=== PATIENT | female | born 1990 | race Caucasian/White ===

== ENCOUNTER 2018-08-08 07:11 | Inpatient (IN) | payer OTHER ==
--- NOTE | 2018-08-08 08:02 | ED ---
General Adult HPI - General Chief complaint: Psychiatric Symptoms Stated complaint: Mental Health Time Seen by Provider: 08/08/18 07:20 Source: patient, EMS, RN notes reviewed Mode of arrival: EMS Limitations: altered mental status - History of Present Illness Initial comments: This is a 28-year-old female who presents to the emergency department with her . Patient was brought in because police were called to the scene because the patient was trying to jump out of a second-story window according to the prior to that she was trying to drink some sort of chemical spray. states this is happened in the past and she had to be admitted to a psychiatric [facility]. Patient is supposed be taking some medications but no longer takes any. states over the last year she's been doing pretty good but she occasionally has episodes where she's not making sense and is worried about her ex-boyfriend coming and getting her. Patient again was making those statements this week but the symptoms have gotten progressively worse and her behavior has become more and more bizarre according to the . states that she is in fear that someone is going to hurt her and it's always related to her ex-boyfriend. states quite often this week she was saying things that make no sense at all to him. He does not believe she is doing any drugs besides marijuana. Patient herself indicates that nothing hurts her and she has no physical complaints and she does agree she needs to be here. Patient also states that she has been having thoughts that someone is trying to harm her. - Related Data Home Medications Medication Instructions Recorded Confirmed Multivitamins, Thera [Multivitamin 1 tab PO DAILY 08/08/18 08/08/18 (formulary)] Xanax (Unknown Dose) 0.25 tab PO QID PRN 08/08/18 08/08/18 Allergies Allergy/AdvReac Type Severity Reaction Status Date / Time No Known Allergies Allergy Verified 08/08/18 08:15 Review of Systems ROS Statement: Those systems with pertinent positive or pertinent negative responses have been documented in the HPI. ROS Other: All systems not noted in ROS Statement are negative. Past Medical History Past Medical History: Unable to Obtain History of Any Multi-Drug Resistant Organisms: None Reported Past Surgical History: Unable to Obtain Past Psychological History: Unable to Obtain Smoking Status: Unknown if ever smoked Past Alcohol Use History: Unable to Obtain Past Drug Use History: None Reported General Exam - General Exam Comments Initial Comments: GENERAL: Patient is well-developed and well-nourished. Patient is nontoxic and well- hydrated and is in no acute distress. ENT: Neck is soft and supple. No significant lymphadenopathy is noted. Oropharynx is clear. Moist mucous membranes. Neck has full range of motion without eliciting any pain. EYES: The sclera were anicteric and conjunctiva were pink and moist. Extraocular movements were intact and pupils were equal round and reactive to light. Eyelids were unremarkable. PULMONARY: Unlabored respirations. Good breath sounds bilaterally. No audible rales rhonchi or wheezing was noted. CARDIOVASCULAR: There is a regular rate and rhythm without any murmurs gallops or rubs. ABDOMEN: Soft and nontender with normal bowel sounds. SKIN: Skin is clear with no lesions or rashes and otherwise unremarkable. NEUROLOGIC: Patient is alert and oriented x3. Cranial nerves II through XII are grossly intact. Motor and sensory are also intact. Speech is very shallow quadrant MUSCULOSKELETAL: Normal extremities with adequate strength and full range of motion. LYMPHATICS: No significant lymphadenopathy is noted PSYCHIATRIC: Patient is acting very bizarre in the room and twitching yet when you tell her to stop she does stop and occasionally she can also is a little and again when you talk. She stops. Patient does states she needs to be seen but she doesn't play specifically why. Patient does agree that she is fearful that her ex- boyfriend is coming to get her. Limitations: altered mental status Course Vital Signs 08/08/18 08/08/18 08/08/18 07:17 07:28 09:19 Temperature 98.7 F Pulse Rate 94 73 64 Respiratory 32 H 18 16 Rate Blood Pressure 136/100 121/95 115/77 O2 Sat by Pulse 100 98 94 L Oximetry Medical Decision Making - Medical Decision Making EPS came down to evaluate the patient and determined the patient needed to be admitted. - Lab Data Result diagrams: 08/08/18 08:05 08/08/18 08:05 Lab Results 08/08/18 08/08/18 08/08/18 Range/Units 08:05 08:05 08:25 WBC 6.3 (3.8-10.6) k/uL RBC 4.81 (3.80-5.40) m/uL Hgb 13.6 (11.4-16.0) gm/dL Hct 41.1 (34.0-46.0) % MCV 85.5 (80.0-100.0) fL MCH 28.2 (25.0-35.0) pg MCHC 33.0 (31.0-37.0) g/dL RDW 15.7 H (11.5-15.5) % Plt Count 246 (150-450) k/uL Neutrophils % 76 % Lymphocytes % 17 % Monocytes % 5 % Eosinophils % 0 % Basophils % 0 % Neutrophils # 4.7 (1.3-7.7) k/uL Lymphocytes # 1.1 (1.0-4.8) k/uL Monocytes # 0.3 (0-1.0) k/uL Eosinophils # 0.0 (0-0.7) k/uL Basophils # 0.0 (0-0.2) k/uL Sodium 140 (137-145) mmol/L Potassium 4.4 (3.5-5.1) mmol/L Chloride 108 H (98-107) mmol/L Carbon Dioxide 23 (22-30) mmol/L Anion Gap 9 mmol/L BUN 9 (7-17) mg/dL Creatinine 0.76 (0.52-1.04) mg/dL Est GFR (CKD-EPI)AfAm >90 (>60 ml/min/1.73 sqM) Est GFR (CKD-EPI)NonAf >90 (>60 ml/min/1.73 sqM) Glucose 91 (74-99) mg/dL Calcium 9.7 (8.4-10.2) mg/dL Total Bilirubin 0.3 (0.2-1.3) mg/dL AST 32 (14-36) U/L ALT 38 (9-52) U/L Alkaline Phosphatase 69 (38-126) U/L Total Protein 8.3 H (6.3-8.2) g/dL Albumin 4.3 (3.5-5.0) g/dL Urine Opiates Screen Not Detected (NotDetected) Ur Oxycodone Screen Not Detected (NotDetected) Urine Methadone Screen Not Detected (NotDetected) Ur Propoxyphene Screen Not Detected (NotDetected) Ur Barbiturates Screen Not Detected (NotDetected) U Tricyclic Antidepress Not Detected (NotDetected) Ur Phencyclidine Scrn Not Detected (NotDetected) Ur Amphetamines Screen Not Detected (NotDetected) U Methamphetamines Scrn Not Detected (NotDetected) U Benzodiazepines Scrn Detected H (NotDetected) Urine Cocaine Screen Not Detected (NotDetected) U Marijuana (THC) Screen Detected H (NotDetected) Serum Alcohol <10 mg/dL Disposition Clinical Impression: Acute psychosis Disposition: ADMITTED IP TO THIS HOSP Referrals: Fouzia Joseph DO [Primary Care Provider] - 1-2 days Time of Disposition: 11:49
--- NOTE | 2018-08-08 08:16 | CT ---
EXAMINATION TYPE: CT brain wo con DATE OF EXAM: 08/08/2018 COMPARISON: None INDICATION: Mental Health, insomnia x3 days DLP: 2194.4 mGycm, Automated exposure control for dose reduction was used. CONTRAST: None CT of the brain is performed utilizing 3 mm thick sections through the posterior fossa and 3 mm thick sections through the remaining calvarium. Study is performed within 24 hours of arrival to the hosp ital. No abnormal hyperdensity is present to suggest an acute intracranial hemorrhage. No mass lesion is evident. No acute infarcts are evident. Ventricles and sulci are appropriate for the patient age. Paranasal sinuses and mastoid air cells within the [id number] are clear. IMPRESSIONS: 1. No acute intracranial process.
[2018-08-08 08:27] LABS: Basophils % (A) 0 %; Eosinophils % (A) 0 %; HCT 41.1 % (34.0-46.0); HGB 13.6 gm/dL (11.4-16.0); Lymphocytes # (A) 1.1 k/uL (1.0-4.8); Lymphocytes % (A) 17 %; MCH 28.2 pg (25.0-35.0); MCV 85.5 fL (80.0-100.0); Mean Platelet Volume 7.9; Monocytes # (A) 0.3 k/uL (0-1.0); Monocytes % (A) 5 %; Neutrophils # (A) 4.7 k/uL (1.3-7.7); Neutrophils % (A) 76 %; Platelet Count 246 k/uL (150-450); RBC 4.81 m/uL (3.80-5.40); RDW 15.7 % (11.5-15.5); WBC 6.3 k/uL (3.8-10.6)
[2018-08-08 08:38] LABS: ALT 38 U/L (9-52); AST 32 U/L (14-36); Albumin 4.3 g/dL (3.5-5.0); Alcohol <10 mg/dL; Alkaline Phosphatase 69 U/L (38-126); Anion Gap 9 mmol/L; Blood Urea Nitrogen 9 mg/dL (7-17); Calcium 9.7 mg/dL (8.4-10.2); Carbon Dioxide 23 mmol/L (22-30); Chloride 108 mmol/L (98-107); Glucose 91 mg/dL (74-99); Potassium 4.4 mmol/L (3.5-5.1); Sodium 140 mmol/L (137-145); Total Bilirubin 0.3 mg/dL (0.2-1.3); Total Protein 8.3 g/dL (6.3-8.2)
[2018-08-08 09:00] LABS: Amphetamine Screen,Urine Not Detected (NotDetected); Barbiturate Screen,Urine Not Detected (NotDetected); Benzodiazepines Screen,Urine Detected (NotDetected); Cocaine Screen,Urine Not Detected (NotDetected); Methadone Screen, Urine Not Detected (NotDetected); Opiate Screen,Urine Not Detected (NotDetected); Oxycodone Screen, Urine Not Detected (NotDetected); Phencyclidine Screen,Urine Not Detected (NotDetected); Tricyclic Antidepressant,Urine Not Detected (NotDetected); Urn Cannabinoid Scrn Detected (NotDetected)
[2018-08-08] MEDS ORDERED: ACETAMINOPHEN TAB 325 MG TAB PO PRN (13:50)
[2018-08-08] MEDS ORDERED: MAGNESIUM HYDROXIDE 2,400 MG/10 ML CUP PO PRN (13:50)
[2018-08-08] MEDS ORDERED: MAG HYDROX/AL HYDROX/SIMETH 30 ML CUP PO PRN (13:50)
[2018-08-08] MEDS ORDERED: INFLUENZA VACCINE (6 MOS+) 60 MCG/0.5 ML SYRINGE IM ONE (14:26)
[2018-08-08] MEDS ORDERED: PNEUMOCOCCAL VACC-PNEUMOVAX 23 25 MCG/0.5 ML VIAL IM ONE (14:26)
[2018-08-08] MEDS: LORazepam 1 MG TAB PO PRN ×2 (14:55→23:01)
--- NOTE | 2018-08-08 15:06 | P.CONS ---
History of Present Illness - Reason for Consult Consult date: 08/08/18 Medical Management Requesting physician: Gino Carrera - Chief Complaint psychosis - History of Present Illness This is a 28-year-old female, patient of [facility]. She has a known past medical history of anxiety and depression. She's had previous psychiatric hospitalizations. Patient brought into the hospital by her regarding bizarre behavior. Per ER report patient was trying to jump out of a second story window according to the . She is also trying to drink some chemical spray. And she is also concerned that her ex boyfriend was coming to get her. Patient does smoke marijuana regularly. She denies any other drug history. Denies any alcohol use. Denies any nicotine use. Patient is very anxious. Complains of some discomfort on the left abdomen. And during exam appears to have difficulty swallowing. However she is able to drink and eat without problems. Denies any coughing or choking. Denies any nausea or vomiting. Reports regular bowel movements. Denies any burning with urination. Patient denies any chest pain or shortness of breath. Even during the exam patient reports she feels her symptoms are likely related to her anxiety. Patient denies any injury to her left side. Denies any falling. Drug screen positive for benzodiazepine and marijuana. Alcohol level less than 10 Review of Systems Please refer to HPI otherwise unremarkable Past Medical History Past Medical History: Unable to Obtain History of Any Multi-Drug Resistant Organisms: None Reported Past Surgical History: Unable to Obtain Smoking Status: Never smoker Medications and Allergies Home Medications Medication Instructions Recorded Confirmed Type No Known Home Medications 08/08/18 08/08/18 History Allergies Allergy/AdvReac Type Severity Reaction Status Date / Time No Known Allergies Allergy Verified 08/08/18 08:15 Physical Exam Vitals: Vital Signs Temp Pulse Pulse Resp BP BP Pulse Ox 08/08/18 12:57 97.7 F 72 19 123/82 08/08/18 12:48 75 16 110/78 97 08/08/18 09:19 64 16 115/77 94 L 08/08/18 07:28 73 18 121/95 98 08/08/18 07:17 98.7 F 94 32 H 136/100 100 Intake and Output 08/07/18 08/08/18 08/08/18 22:59 06:59 14:59 Other: Weight 65.884 kg Head normocephalic Neck supple Lungs clear to auscultation bilaterally no wheezing or crackles Heart regular rate and rhythm S1-S2, no rub or gallop Abdomen is soft nontender nondistended positive bowel sounds no hepatosplenomegaly. No bruising scars or rashes noted along the left abdomen Extremities no edema Neuro alert and orientated to 3 Psychiatric patient is very anxious during exam. She is fidgety. Looks like she is having difficulty swallowing all talking. And holds her left side. Results CBC & Chem 7: 08/08/18 08:05 08/08/18 08:05 Labs: Abnormal Lab Results - Last 24 Hours (Table) 08/08/18 08/08/18 08/08/18 Range/Units 08:05 08:05 08:25 RDW 15.7 H (11.5-15.5) % Chloride 108 H (98-107) mmol/L Total Protein 8.3 H (6.3-8.2) g/dL U Benzodiazepines Scrn Detected H (NotDetected) U Marijuana (THC) Screen Detected H (NotDetected) Assessment and Plan Assessment: 1. Severe Anxiety and psychosis: Patient has been admitted to the psychiatric unit. Thyroid study pending. Drug screen positive for benzodiazepine and marijuana. Continue with psychiatric management. 2. History of anxiety and depression had been on Lexapro in the past 3. Left-sided abdominal discomfort: Possibly related to patient's anxiety. Check urinalysis. If symptoms continue after psychiatric medication started we will order further imaging of the abdomen. Thank you for this consultation. We will continue to follow along with you. Time with Patient: Greater than 30 (Greater than 50% of the total time spent in counseling and coordination of care.I performed an examination of the patient and discussed their management with the physician Learning Program Manager. I have reviewed the Physician Learning Program Manager's notes and agree with the documented findings and plan of care)
[2018-08-09] MEDS: ARIPiprazole 5 MG TAB PO SCH (10:21)
[2018-08-09 11:09] LABS: Appearance,Urine Cloudy (Clear); Bacteria,Urine Occasional /hpf; Bilirubin,Urine Negative (Negative); Blood,Urine Negative (Negative); Color,Urine Yellow; Glucose,Urine (UA) Negative (Negative); Ketones,Urine Trace (Negative); Leukocyte Esterase,Urine Small (Negative); Mucus,Urine Many /hpf; Nitrite,Urine Negative (Negative); PH, Urine 6.5 (5.0-8.0); Protein,Urine 1+ (Negative); RBC,Urine 7 /hpf (0-5); Specific Gravity,Urine 1.029 (1.001-1.035); Squamous Epithelial Cell,Urine 57 /hpf (0-4); WBC,Urine 4 /hpf (0-5)
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
[2018-08-10] MEDS: LORazepam 1 MG TAB PO PRN (00:58)
[2018-08-10] MEDS: ARIPiprazole 5 MG TAB PO SCH (08:45)
[2018-08-10] MEDS ORDERED: ARIPiprazole 5 MG TAB PO ONE (09:36)
[2018-08-10] MEDS ORDERED: traZODone HCL 50 MG TAB PO PRN (09:41)
--- NOTE | 2018-08-10 09:41 | P.PN ---
Progress Note - Text Interval history: The patient is found in her room she follows me to an interview room. She states that she is still not doing well. She has difficulty providing direct answers to questions asked. She provides a long narrative when asked a question but she tends to jump from topic to topic. She continues to describe paranoid thoughts. As an example she states that there was an odd smell in her home prior to coming here, she states she could smell it everywhere and it got into her clothes. She states she is concerned it is evidence that her family was doing something to her. She states that she feels terrible for hurting her but has difficulty describing how. We discussed her thought disorganization and she has limited insight into her thought process. She has been compliant with the Abilify she is describing no side effects from it. Mental status exam: The patient is alert she seated calmly in the chair. She is dressed in her own clothing hygiene grooming are adequate. She is easily directed. Spontaneously she begins speaking and we'll continue speaking until interrupted. Thought process is tangential there are some loose associations. There appears to be paranoid thinking present. She is reporting no suicidal or homicidal thoughts. Insight and judgment are limited. She maintains a constricted affect for most of the session but almost becomes tearful twice. She demonstrates no involuntary repetitive movements. She demonstrates no verbal or physical aggressiveness. She describes no auditory or visual hallucinations. Plan: The patient will continue on the Abilify I will titrate the dose to 10 mg daily to improve organization of thought and to address paranoid thinking. We will provide trazodone 50 mg at bedtime as needed for sleep. We will monitor her for safety and encourage her participation in the milieu. Vital signs reviewed.
[2018-08-10] MEDS ORDERED: INFLUENZA VACCINE (6 MOS+) 60 MCG/0.5 ML SYRINGE IM ONE (15:03)
[2018-08-10] MEDS: BENZOCAINE/MENTHOL LOZENG 1 EACH LOZENGE MUCOUS MEM PRN (18:59)
[2018-08-11] MEDS: BENZOCAINE/MENTHOL LOZENG 1 EACH LOZENGE MUCOUS MEM PRN (02:05)
[2018-08-11] MEDS ORDERED: ARIPiprazole 10 MG TAB PO SCH (09:00)
--- NOTE | 2018-08-11 11:59 | P.HP ---
Psychiatric H&P - . H&P Date: 08/11/18 History & Physical: Allergies Allergy/AdvReac Type Severity Reaction Status Date / Time No Known Allergies Allergy Verified 08/08/18 08:15 Vital Signs Temp 97.8 F 08/11/18 06:39 Pulse 71 08/11/18 06:39 Resp 16 08/11/18 06:39 BP 102/57 08/11/18 06:39 Pulse Ox 97 08/08/18 12:48 Intake & Output 08/10/18 08/11/18 08/11/18 18:59 06:59 18:59 Weight 65.4 kg Laboratory Last Values WBC 6.3 k/uL (3.8-10.6) 08/08/18 08:05 RBC 4.81 m/uL (3.80-5.40) 08/08/18 08:05 Hgb 13.6 gm/dL (11.4-16.0) 08/08/18 08:05 Hct 41.1 % (34.0-46.0) 08/08/18 08:05 MCV 85.5 fL (80.0-100.0) 08/08/18 08:05 MCH 28.2 pg (25.0-35.0) 08/08/18 08:05 MCHC 33.0 g/dL (31.0-37.0) 08/08/18 08:05 RDW 15.7 % (11.5-15.5) H 08/08/18 08:05 Plt Count 246 k/uL (150-450) 08/08/18 08:05 Neutrophils % 76 % 08/08/18 08:05 Lymphocytes % 17 % 08/08/18 08:05 Monocytes % 5 % 08/08/18 08:05 Eosinophils % 0 % 08/08/18 08:05 Basophils % 0 % 08/08/18 08:05 Neutrophils # 4.7 k/uL (1.3-7.7) 08/08/18 08:05 Lymphocytes # 1.1 k/uL (1.0-4.8) 08/08/18 08:05 Monocytes # 0.3 k/uL (0-1.0) 08/08/18 08:05 Eosinophils # 0.0 k/uL (0-0.7) 08/08/18 08:05 Basophils # 0.0 k/uL (0-0.2) 08/08/18 08:05 Sodium 140 mmol/L (137-145) 08/08/18 08:05 Potassium 4.4 mmol/L (3.5-5.1) 08/08/18 08:05 Chloride 108 mmol/L (98-107) H 08/08/18 08:05 Carbon Dioxide 23 mmol/L (22-30) 08/08/18 08:05 Anion Gap 9 mmol/L 08/08/18 08:05 BUN 9 mg/dL (7-17) 08/08/18 08:05 Creatinine 0.76 mg/dL (0.52-1.04) 08/08/18 08:05 Est GFR (CKD-EPI)AfAm >90 (>60 ml/min/1.73 sqM) 08/08/18 08:05 Est GFR (CKD-EPI)NonAf >90 (>60 ml/min/1.73 sqM) 08/08/18 08:05 Glucose 91 mg/dL (74-99) 08/08/18 08:05 Calcium 9.7 mg/dL (8.4-10.2) 08/08/18 08:05 Total Bilirubin 0.3 mg/dL (0.2-1.3) 08/08/18 08:05 AST 32 U/L (14-36) 08/08/18 08:05 ALT 38 U/L (9-52) 08/08/18 08:05 Alkaline Phosphatase 69 U/L (38-126) 08/08/18 08:05 Total Protein 8.3 g/dL (6.3-8.2) H 08/08/18 08:05 Albumin 4.3 g/dL (3.5-5.0) 08/08/18 08:05 TSH 2.550 mIU/L (0.465-4.680) 08/08/18 08:05 Urine Color Yellow 08/09/18 10:30 Urine Appearance Cloudy (Clear) H 08/09/18 10:30 Urine pH 6.5 (5.0-8.0) 08/09/18 10:30 Ur Specific [place] 1.029 (1.001-1.035) 08/09/18 10:30 Urine Protein 1+ (Negative) H 08/09/18 10:30 Urine Glucose (UA) Negative (Negative) 08/09/18 10:30 Urine Ketones Trace (Negative) H 08/09/18 10:30 Urine Blood Negative (Negative) 08/09/18 10:30 Urine Nitrite Negative (Negative) 08/09/18 10:30 Urine Bilirubin Negative (Negative) 08/09/18 10:30 Urine Urobilinogen 3.0 mg/dL (<2.0) 08/09/18 10:30 Ur Leukocyte Esterase Small (Negative) H 08/09/18 10:30 Urine RBC 7 /hpf (0-5) H 08/09/18 10:30 Urine WBC 4 /hpf (0-5) 08/09/18 10:30 Ur Squamous Epith Cells 57 /hpf (0-4) H 08/09/18 10:30 Urine Bacteria Occasional /hpf (None) H 08/09/18 10:30 Urine Mucus Many /hpf (None) H 08/09/18 10:30 Urine HCG, Qual Not Detected (Not Detectd) 08/09/18 10:30 Urine Opiates Screen Not Detected (NotDetected) 08/08/18 08:25 Ur Oxycodone Screen Not Detected (NotDetected) 08/08/18 08:25 Urine Methadone Screen Not Detected (NotDetected) 08/08/18 08:25 Ur Propoxyphene Screen Not Detected (NotDetected) 08/08/18 08:25 Ur Barbiturates Screen Not Detected (NotDetected) 08/08/18 08:25 U Tricyclic Antidepress Not Detected (NotDetected) 08/08/18 08:25 Ur Phencyclidine Scrn Not Detected (NotDetected) 08/08/18 08:25 Ur Amphetamines Screen Not Detected (NotDetected) 08/08/18 08:25 U Methamphetamines Scrn Not Detected (NotDetected) 08/08/18 08:25 U Benzodiazepines Scrn Detected (NotDetected) H 08/08/18 08:25 Urine Cocaine Screen Not Detected (NotDetected) 08/08/18 08:25 U Marijuana (THC) Screen Detected (NotDetected) H 08/08/18 08:25 Serum Alcohol <10 mg/dL 08/08/18 08:05 Assessment and Plan Assessment: This is a 28-year-old female who presents to the emergency department with her . Patient was brought in because police were called to the scene because the patient was trying to jump out of a second-story window according to the prior to that she was trying to drink some sort of chemical spray. states this is happened in the past and she had to be admitted to a psychiatric cabral. Patient is supposed be taking some medications but no longer takes any. states over the last year she's been doing pretty good but she occasionally has episodes where she's not making sense and is worried about her ex-boyfriend coming and getting her. Patient again was making those statements this week but the symptoms have gotten progressively worse and her behavior has become more and more bizarre according to the . states that she is in fear that someone is going to hurt her and it's always related to her ex-boyfriend. states quite often this week she was saying things that make no sense at all to him. He does not believe she is doing any drugs besides marijuana. Patient herself indicates that nothing hurts her and she has no physical complaints and she does agree she needs to be here. Patient also states that she has been having thoughts that someone is trying to harm her. - Related Data Home Medications Medication Instructions Recorded Confirmed Multivitamins, Thera [Multivitamin 1 tab PO DAILY 08/08/18 08/08/18 (formulary)] Xanax (Unknown Dose) 0.25 tab PO QID PRN 08/08/18 08/08/18 Allergies Allergy/AdvReac Type Severity Reaction Status Date / Time No Known Allergies Allergy Verified 08/08/18 08:15 Past Medical History Past Medical History: Unable to Obtain History of Any Multi-Drug Resistant Organisms: None Reported Past Surgical History: Unable to Obtain Past Psychological History: Unable to Obtain Smoking Status: Unknown if ever smoked Past Alcohol Use History: Unable to Obtain Past Drug Use History: None Reported (1) Major depression with psychotic features Narrative/Plan: Interval history: The patient is found in her room she follows me to an interview room. She states that she is still not doing well. She has difficulty providing direct answers to questions asked. She provides a long narrative when asked a question but she tends to jump from topic to topic. She continues to describe paranoid thoughts. As an example she states that there was an odd smell in her home prior to coming here, she states she could smell it everywhere and it got into her clothes. She states she is concerned it is evidence that her family was doing something to her. She states that she feels terrible for hurting her but has difficulty describing how. We discussed her thought disorganization and she has limited insight into her thought process. She has been compliant with the Abilify she is describing no side effects from it. Mental status exam: The patient is alert she seated calmly in the chair. She is dressed in her own clothing hygiene grooming are adequate. She is easily directed. Spontaneously she begins speaking and we'll continue speaking until interrupted. Thought process is tangential there are some loose associations. There appears to be paranoid thinking present. She is reporting no suicidal or homicidal thoughts. Insight and judgment are limited. She maintains a constricted affect for most of the session but almost becomes tearful twice. She demonstrates no involuntary repetitive movements. She demonstrates no verbal or physical aggressiveness. She describes no auditory or visual hallucinations. Plan: The patient will continue on the Abilify I will titrate the dose to 10 mg daily to improve organization of thought and to address paranoid thinking. We will provide trazodone 50 mg at bedtime as needed for sleep. We will monitor her for safety and encourage her participation in the milieu. Vital signs reviewed. Admitting Diagnosis: [] Patient Strengths - Personal Skills: [x] Housing stability: [x] Able to vocalize needs: [x] Motivation, determination, readiness for change: [x] Setting and pursuing goals, hopes, dreams, aspirations: [x] Resources - social, interpersonal, monetary: [x] Interpersonal relationships and supports available - family, relatives, friends : [x] Patient Limitations: [medication, non-compliance Initial Plan of Care: [She was admitted on formal voluntary 15 minute checks and instructed on cabral milieu therapeutic environment expectations. She'll be evaluated by psychiatry, medicine, social work, nursing staff, and recreational therapy and integrated in the cabral milieu therapeutic environment. She will be started on Invega 3 mg by mouth daily at bedtime and Lamictal 25 mg by mouth daily at bedtime with titration of Invega to 12 mg and Lamictal to 200 mg on 25 mg dosing daily schedule to ascertain benefit risk ratio discussed with the patient and look out for any side effects from the medication. She did not like the feeling of Abilify and felt too groggy and overwhelmed that she was taken off of.] Estimated Length of Stay: [5-7 days] Initial Discharge Plan: [home, [facility], referred to therapist, partial hospital, intensive outpatient, residential placement, other] Prognosis: [good, fair, guarded] Justification for Inpatient Hospitalization - [delusions, agitation, anxiety, depression resulting in significant loss of functioning.] [Dangerous to self with need for controlled environment.] [Emotional or behavioral conditions and complications requiring 24 hour medical and nursing care.] [Need for special drug therapy, or other therapeutic program requiring continuous hospitalization.] [Failure of social or occupational functioning.] [Inability to meet basic life and health needs.] Current Visit: Yes Status: Acute Priority: High Code(s): F32.3 - MAJOR DEPRESSV DISORD, SINGLE EPSD, SEVERE W PSYCH FEATURES SNOMED Code(s): 653750060 Plan: Discontinue Abilify and changed to Invega 3 mg by mouth daily at bedtime and Lamictal 25 mg by mouth daily at bedtime. Discussed risk benefit ratio with the patient. Will be seen on a daily basis and teamed and a multi specialty group for progress and disposition. Time with Patient: Less than 30
[2018-08-11] MEDS ORDERED: ARTIFICIAL TEARS-HYPROMELLOSE DROPS 15 ML BTL BOTH EYES PRN (16:30)
[2018-08-11] MEDS ORDERED: lamoTRIgine 25 MG TAB PO SCH (21:00)
[2018-08-11] MEDS ORDERED: PALIPERIDONE 3 MG TAB.ER.24 PO SCH (21:00)
--- NOTE | 2018-08-12 14:13 | P.PN ---
Subjective Progress Note Date: 08/12/18 Principal diagnosis: bipolar affective disorder-depressed and paranoid I am terrified and I am feel very fearful. Teardul the entire interview. She rambles at times and resistant to care. Objective - Vital Signs Vital signs: Vital Signs Temp 98 F 08/12/18 06:47 Pulse 79 08/12/18 06:47 Resp 16 08/12/18 06:47 BP 107/66 08/12/18 06:47 Pulse Ox 97 08/08/18 12:48 - Labs CBC & Chem 7: 08/08/18 08:05 08/08/18 08:05 Assessment and Plan Assessment: This is a 28-year-old female who presents to the emergency department with her . Patient was brought in because police were called to the scene because the patient was trying to jump out of a second-story window according to the prior to that she was trying to drink some sort of chemical spray. states this is happened in the past and she had to be admitted to a psychiatric cabral. Patient is supposed be taking some medications but no longer takes any. states over the last year she's been doing pretty good but she occasionally has episodes where she's not making sense and is worried about her ex-boyfriend coming and getting her. Patient again was making those statements this week but the symptoms have gotten progressively worse and her behavior has become more and more bizarre according to the . states that she is in fear that someone is going to hurt her and it's always related to her ex-boyfriend. states quite often this week she was saying things that make no sense at all to him. He does not believe she is doing any drugs besides marijuana. Patient herself indicates that nothing hurts her and she has no physical complaints and she does agree she needs to be here. Patient also states that she has been having thoughts that someone is trying to harm her. - Related Data Home Medications Medication Instructions Recorded Confirmed Multivitamins, Thera [Multivitamin 1 tab PO DAILY 08/08/18 08/08/18 (formulary)] Xanax (Unknown Dose) 0.25 tab PO QID PRN 08/08/18 08/08/18 Allergies Allergy/AdvReac Type Severity Reaction Status Date / Time No Known Allergies Allergy Verified 12/07/18 08:15 Past Medical History Past Medical History: Unable to Obtain History of Any Multi-Drug Resistant Organisms: None Reported Past Surgical History: Unable to Obtain Past Psychological History: Unable to Obtain Smoking Status: Unknown if ever smoked Past Alcohol Use History: Unable to Obtain Past Drug Use History: None Reported (1) Major depression with psychotic features Narrative/Plan: Interval history: The patient is found in her room she follows me to an interview room. She states that she is still not doing well. She has difficulty providing direct answers to questions asked. She provides a long narrative when asked a question but she tends to jump from topic to topic. She continues to describe paranoid thoughts. As an example she states that there was an odd smell in her home prior to coming here, she states she could smell it everywhere and it got into her clothes. She states she is concerned it is evidence that her family was doing something to her. She states that she feels terrible for hurting her but has difficulty describing how. We discussed her thought disorganization and she has limited insight into her thought process. She has been compliant with the Abilify she is describing no side effects from it. Mental status exam: The patient is alert she seated calmly in the chair. She is dressed in her own clothing hygiene grooming are adequate. She is easily directed. Spontaneously she begins speaking and we'll continue speaking until interrupted. Thought process is tangential there are some loose associations. There appears to be paranoid thinking present. She is reporting no suicidal or homicidal thoughts. Insight and judgment are limited. She maintains a constricted affect for most of the session but almost becomes tearful twice. She demonstrates no involuntary repetitive movements. She demonstrates no verbal or physical aggressiveness. She describes no auditory or visual hallucinations. Plan: The patient will continue on the Abilify I will titrate the dose to 10 mg daily to improve organization of thought and to address paranoid thinking. We will provide trazodone 50 mg at bedtime as needed for sleep. We will monitor her for safety and encourage her participation in the milieu. Vital signs reviewed. Admitting Diagnosis: [] Patient Strengths - Personal Skills: [x] Housing stability: [x] Able to vocalize needs: [x] Motivation, determination, readiness for change: [x] Setting and pursuing goals, hopes, dreams, aspirations: [x] Resources - social, interpersonal, monetary: [x] Interpersonal relationships and supports available - family, relatives, friends : [x] Patient Limitations: [medication, non-compliance Initial Plan of Care: [She was admitted on formal voluntary 15 minute checks and instructed on cabral milieu therapeutic environment expectations. She'll be evaluated by psychiatry, medicine, social work, nursing staff, and recreational therapy and integrated in the cabral milieu therapeutic environment. Estimated Length of Stay: [6 days] Initial Discharge Plan: [home, [facility], referred to therapist, [facility], intensive outpatient, residential placement, other] Prognosis: [good, fair, guarded] Justification for Inpatient Hospitalization - [delusions, agitation, anxiety, depression resulting in significant loss of functioning.] [Dangerous to self with need for controlled environment.] [Emotional or behavioral conditions and complications requiring 24 hour medical and nursing care.] [Need for special drug therapy, or other therapeutic program requiring continuous hospitalization.] [Failure of social or occupational functioning.] [Inability to meet basic life and health needs.] Current Visit: Yes Status: Acute Priority: High Code(s): F32.3 - MAJOR DEPRESSV DISORD, SINGLE EPSD, SEVERE W PSYCH FEATURES SNOMED Code(s): 082047029 Plan: Risperdal 0.5 mg by mouth daily at bedtime and topamax 25 mg by mouth daily at bedtime. Discussed risk benefit ratio with the patient. Will be seen on a daily basis and teamed and a multi specialty group for progress and disposition. Time with Patient: Greater than 30
[2018-08-12 14:16] VITALS: BMI 24.7
[2018-08-12] MEDS: risperiDONE 0.5 MG TAB PO SCH (20:32)
[2018-08-12] MEDS ORDERED: TOPIRAMATE 25 MG TAB PO SCH (21:00)
--- NOTE | 2018-08-13 12:16 | P.PN ---
Subjective Progress Note Date: 08/13/18 Principal diagnosis: bipolar affective disorder-depressed and paranoid I am terrified and I am feel very fearful. Tearful the entire interview. She rambles at times and resistant to care. Objective - Vital Signs Vital signs: Vital Signs Temp 98.5 F 08/13/18 06:24 Pulse 87 08/13/18 06:24 Resp 12 08/13/18 06:24 BP 116/75 08/13/18 06:24 Pulse Ox 97 08/08/18 12:48 Intake & Output 08/12/18 08/13/18 08/13/18 18:59 06:59 18:59 Weight 65.4 kg - Labs CBC & Chem 7: 08/08/18 08:05 08/08/18 08:05 Assessment and Plan Assessment: This is a 28-year-old female who presents to the emergency department with her . Patient was brought in because police were called to the scene because the patient was trying to jump out of a second-story window according to the prior to that she was trying to drink some sort of chemical spray. states this is happened in the past and she had to be admitted to a psychiatric cabral. Patient is supposed be taking some medications but no longer takes any. states over the last year she's been doing pretty good but she occasionally has episodes where she's not making sense and is worried about her ex-boyfriend coming and getting her. Patient again was making those statements this week but the symptoms have gotten progressively worse and her behavior has become more and more bizarre according to the . states that she is in fear that someone is going to hurt her and it's always related to her ex-boyfriend. states quite often this week she was saying things that make no sense at all to him. He does not believe she is doing any drugs besides marijuana. Patient herself indicates that nothing hurts her and she has no physical complaints and she does agree she needs to be here. Patient also states that she has been having thoughts that someone is trying to harm her. - Related Data Home Medications Medication Instructions Recorded Confirmed Multivitamins, Thera [Multivitamin 1 tab PO DAILY 08/08/18 08/08/18 (formulary)] Xanax (Unknown Dose) 0.25 tab PO QID PRN 08/08/18 08/08/18 Allergies Allergy/AdvReac Type Severity Reaction Status Date / Time No Known Allergies Allergy Verified 08/08/18 08:15 Past Medical History Past Medical History: Unable to Obtain History of Any Multi-Drug Resistant Organisms: None Reported Past Surgical History: Unable to Obtain Past Psychological History: Unable to Obtain Smoking Status: Unknown if ever smoked Past Alcohol Use History: Unable to Obtain Past Drug Use History: None Reported (1) Major depression with psychotic features Narrative/Plan: Interval history: The patient is found in her room she follows me to an interview room. She states that she is still not doing well. She has difficulty providing direct answers to questions asked. She provides a long narrative when asked a question but she tends to jump from topic to topic. She continues to describe paranoid thoughts. As an example she states that there was an odd smell in her home prior to coming here, she states she could smell it everywhere and it got into her clothes. She states she is concerned it is evidence that her family was doing something to her. She states that she feels terrible for hurting her but has difficulty describing how. We discussed her thought disorganization and she has limited insight into her thought process. She has been compliant with the Abilify she is describing no side effects from it. Mental status exam: The patient is alert she seated calmly in the chair. She is dressed in her own clothing hygiene grooming are adequate. She is easily directed. Spontaneously she begins speaking and we'll continue speaking until interrupted. Thought process is tangential there are some loose associations. There appears to be paranoid thinking present. She is reporting no suicidal or homicidal thoughts. Insight and judgment are limited. She maintains a constricted affect for most of the session but almost becomes tearful twice. She demonstrates no involuntary repetitive movements. She demonstrates no verbal or physical aggressiveness. She describes no auditory or visual hallucinations. Admitting Diagnosis: [Major depressive disorder-severe with psychotic features] Patient Strengths - Personal Skills: [x] Housing stability: [x] Able to vocalize needs: [x] Motivation, determination, readiness for change: [x] Setting and pursuing goals, hopes, dreams, aspirations: [x] Resources - social, interpersonal, monetary: [x] Interpersonal relationships and supports available - family, relatives, friends : [x] Patient Limitations: [medication, non-compliance Initial Plan of Care: [She was admitted on formal voluntary 15 minute checks and instructed on cabral milieu therapeutic environment expectations. She'll be evaluated by psychiatry, medicine, social work, nursing staff, and recreational therapy and integrated in the cabral milieu therapeutic environment. Estimated Length of Stay: [ 5 days] Initial Discharge Plan: [home, [facility], referred to therapist, partial hospital, intensive outpatient, residential placement, other] Prognosis: [good, fair, guarded] Justification for Inpatient Hospitalization - [delusions, agitation, anxiety, depression resulting in significant loss of functioning.] [Dangerous to self with need for controlled environment.] [Emotional or behavioral conditions and complications requiring 24 hour medical and nursing care.] [Need for special drug therapy, or other therapeutic program requiring continuous hospitalization.] [Failure of social or occupational functioning.] [Inability to meet basic life and health needs.] Current Visit: Yes Status: Acute Priority: High Code(s): F32.3 - MAJOR DEPRESSV DISORD, SINGLE EPSD, SEVERE W PSYCH FEATURES SNOMED Code(s): 735483491 Plan: Risperdal 0.5 mg by mouth daily at bedtime and topamax 50 mg by mouth daily at bedtime. Discussed risk benefit ratio with the patient. Will be seen on a daily basis and teamed and a multi specialty group for progress and disposition. Time with Patient: Less than 30
[2018-08-13 19:00] LABS: Appearance,Urine Clear (Clear); Bilirubin,Urine Negative (Negative); Blood,Urine Negative (Negative); Color,Urine Yellow; Glucose,Urine (UA) Negative (Negative); Ketones,Urine 2+ (Negative); Leukocyte Esterase,Urine Negative (Negative); Mucus,Urine Moderate /hpf; Nitrite,Urine Negative (Negative); Protein,Urine 1+ (Negative); RBC,Urine 2 /hpf (0-5); Squamous Epithelial Cell,Urine 1 /hpf (0-4); WBC,Urine <1 /hpf (0-5)
[2018-08-13] MEDS: risperiDONE 0.5 MG TAB PO SCH (21:21)
[2018-08-13] MEDS: TOPIRAMATE 25 MG TAB PO SCH (21:21)
[2018-08-14] MEDS: BENZOCAINE/MENTHOL LOZENG 1 EACH LOZENGE MUCOUS MEM PRN ×2 (07:45→12:20)
--- NOTE | 2018-08-14 11:19 | P.PN ---
Subjective Progress Note Date: 08/14/18 Principal diagnosis: bipolar affective disorder-depressed and paranoid I am terrified and I am feel very fearful. Tearful the entire interview. She rambles at times and resistant to care. Today stating that the medicine trazodone made her stomach upset and will discontinue the medicine discussed with her that she needs to stay at least until Saturday which she agreed to staying in being discharge on 08/18/2018 Objective - Vital Signs Vital signs: Vital Signs Temp 97.7 F 08/14/18 06:35 Pulse 71 08/14/18 06:35 Resp 16 08/14/18 06:35 BP 126/75 08/14/18 06:35 Pulse Ox 97 08/08/18 12:48 - Labs CBC & Chem 7: 08/08/18 08:05 08/08/18 08:05 Labs: Abnormal Lab Results - Last 24 Hours (Table) 08/13/18 Range/Units 18:00 Urine Protein 1+ H (Negative) Urine Ketones 2+ H (Negative) Urine Mucus Moderate H (None) /hpf Microbiology - Last 24 Hours (Table) 08/13/18 18:00 Urine Culture - Preliminary Urine,Clean Catch Assessment and Plan Assessment: This is a 28-year-old female who presents to the emergency department with her . Patient was brought in because police were called to the scene because the patient was trying to jump out of a second-story window according to the prior to that she was trying to drink some sort of chemical spray. states this is happened in the past and she had to be admitted to a psychiatric cabral. Patient is supposed be taking some medications but no longer takes any. states over the last year she's been doing pretty good but she occasionally has episodes where she's not making sense and is worried about her ex-boyfriend coming and getting her. Patient again was making those statements this week but the symptoms have gotten progressively worse and her behavior has become more and more bizarre according to the . states that she is in fear that someone is going to hurt her and it's always related to her ex-boyfriend. states quite often this week she was saying things that make no sense at all to him. He does not believe she is doing any drugs besides marijuana. Patient herself indicates that nothing hurts her and she has no physical complaints and she does agree she needs to be here. Patient also states that she has been having thoughts that someone is trying to harm her. - Related Data Home Medications Medication Instructions Recorded Confirmed Multivitamins, Thera [Multivitamin 1 tab PO DAILY 08/08/18 08/08/18 (formulary)] Xanax (Unknown Dose) 0.25 tab PO QID PRN 08/08/18 08/08/18 Allergies Allergy/AdvReac Type Severity Reaction Status Date / Time No Known Allergies Allergy Verified 08/08/18 08:15 Past Medical History Past Medical History: Unable to Obtain History of Any Multi-Drug Resistant Organisms: None Reported Past Surgical History: Unable to Obtain Past Psychological History: Unable to Obtain Smoking Status: Unknown if ever smoked Past Alcohol Use History: Unable to Obtain Past Drug Use History: None Reported (1) Major depression with psychotic features Current Visit: Yes Status: Acute Priority: Medium Code(s): F32.3 - MAJOR DEPRESSV DISORD, SINGLE EPSD, SEVERE W PSYCH FEATURES SNOMED Code(s): 514438464 Plan: Risperdal 0.5 mg by mouth daily at bedtime and topamax 50 mg by mouth daily at bedtime. Discussed risk benefit ratio with the patient. Will be seen on a daily basis and teamed and a multi specialty group for progress and disposition. Discontinued her trazodone since that makes her sleep be and her stomach upset. Time with Patient: Less than 30
[2018-08-15] MEDS: BENZOCAINE/MENTHOL LOZENG 1 EACH LOZENGE MUCOUS MEM PRN (08:32)
--- NOTE | 2018-08-15 10:05 | P.PN ---
Subjective Progress Note Date: 08/15/18 Principal diagnosis: bipolar affective disorder-depressed and paranoid I am terrified and I am feel very fearful. Tearful the entire interview. She rambles at times and resistant to care. Today stating that the medicine trazodone made her stomach upset and will discontinue the medicine discussed with her that she needs to stay at least until Saturday which she agreed to staying in being discharge on 08/18/2018 Objective - Vital Signs Vital signs: Vital Signs Temp 98.2 F 08/15/18 06:39 Pulse 111 H 08/15/18 06:39 Resp 16 08/15/18 06:39 BP 116/65 08/15/18 06:39 Pulse Ox 97 08/08/18 12:48 - Labs CBC & Chem 7: 08/08/18 08:05 08/08/18 08:05 Labs: Microbiology - Last 24 Hours (Table) 08/13/18 18:00 Urine Culture - Final Urine,Clean Catch Assessment and Plan Assessment: This is a 28-year-old female who presents to the emergency department with her . Patient was brought in because police were called to the scene because the patient was trying to jump out of a second-story window according to the prior to that she was trying to drink some sort of chemical spray. states this is happened in the past and she had to be admitted to a psychiatric cabral. Patient is supposed be taking some medications but no longer takes any. states over the last year she's been doing pretty good but she occasionally has episodes where she's not making sense and is worried about her ex-boyfriend coming and getting her. Patient again was making those statements this week but the symptoms have gotten progressively worse and her behavior has become more and more bizarre according to the . states that she is in fear that someone is going to hurt her and it's always related to her ex-boyfriend. states quite often this week she was saying things that make no sense at all to him. He does not believe she is doing any drugs besides marijuana. Patient herself indicates that nothing hurts her and she has no physical complaints and she does agree she needs to be here. Patient also states that she has been having thoughts that someone is trying to harm her. - Related Data Home Medications Medication Instructions Recorded Confirmed Multivitamins, Thera [Multivitamin 1 tab PO DAILY 08/08/18 08/08/18 (formulary)] Xanax (Unknown Dose) 0.25 tab PO QID PRN 08/08/18 08/08/18 Allergies Allergy/AdvReac Type Severity Reaction Status Date / Time No Known Allergies Allergy Verified 08/08/18 08:15 Past Medical History Past Medical History: Unable to Obtain History of Any Multi-Drug Resistant Organisms: None Reported Past Surgical History: Unable to Obtain Past Psychological History: Unable to Obtain Smoking Status: Unknown if ever smoked Past Alcohol Use History: Unable to Obtain Past Drug Use History: None Reported (1) Major depression with psychotic features Narrative/Plan: Interval history: The patient is found in her room she follows me to an interview room. She states that she is still not doing well. She has difficulty providing direct answers to questions asked. She provides a long narrative when asked a question but she tends to jump from topic to topic. She continues to describe paranoid thoughts. As an example she states that there was an odd smell in her home prior to coming here, she states she could smell it everywhere and it got into her clothes. She states she is concerned it is evidence that her family was doing something to her. She states that she feels terrible for hurting her but has difficulty describing how. We discussed her thought disorganization and she has limited insight into her thought process. She has been compliant with the Abilify she is describing no side effects from it. Mental status exam: The patient is alert she seated calmly in the chair. She is dressed in her own clothing hygiene grooming are adequate. She is easily directed. Spontaneously she begins speaking and we'll continue speaking until interrupted. Thought process is tangential there are some loose associations. There appears to be paranoid thinking present. She is reporting no suicidal or homicidal thoughts. Insight and judgment are limited. She maintains a constricted affect for most of the session but almost becomes tearful twice. She demonstrates no involuntary repetitive movements. She demonstrates no verbal or physical aggressiveness. She describes no auditory or visual hallucinations. Admitting Diagnosis: [Major depressive disorder-severe with psychotic features] Patient Strengths - Personal Skills: [x] Housing stability: [x] Able to vocalize needs: [x] Motivation, determination, readiness for change: [x] Setting and pursuing goals, hopes, dreams, aspirations: [x] Resources - social, interpersonal, monetary: [x] Interpersonal relationships and supports available - family, relatives, friends : [x] Patient Limitations: [medication, non-compliance Initial Plan of Care: [She was admitted on formal voluntary 15 minute checks and instructed on cabral milieu therapeutic environment expectations. She'll be evaluated by psychiatry, medicine, social work, nursing staff, and recreational therapy and integrated in the cabral milieu therapeutic environment. Estimated Length of Stay: [ 5 days] Initial Discharge Plan: [home, [facility], referred to therapist, partial hospital, intensive outpatient, residential placement, other] Prognosis: [good, fair, guarded] Justification for Inpatient Hospitalization - [delusions, agitation, anxiety, depression resulting in significant loss of functioning.] [Dangerous to self with need for controlled environment.] [Emotional or behavioral conditions and complications requiring 24 hour medical and nursing care.] [Need for special drug therapy, or other therapeutic program requiring continuous hospitalization.] [Failure of social or occupational functioning.] [Inability to meet basic life and health needs.] Current Visit: Yes Status: Acute Priority: Low Code(s): F32.3 - MAJOR DEPRESSV DISORD, SINGLE EPSD, SEVERE W PSYCH FEATURES SNOMED Code(s): 076222457 Plan: Risperdal 1 mg by mouth daily at bedtime and topamax 50 mg by mouth daily at bedtime. Discussed risk benefit ratio with the patient. Will be seen on a daily basis and teamed and a multi specialty group for progress and disposition. Discontinued her trazodone since that makes her sleep be and her stomach upset. Time with Patient: Less than 30
[2018-08-15] MEDS: TOPIRAMATE 25 MG TAB PO SCH ×2 (19:59→20:45)
[2018-08-15] MEDS: risperiDONE 0.5 MG TAB PO SCH (20:00)
[2018-08-15] MEDS: risperiDONE 1 MG TAB PO SCH (20:44)
[2018-08-16 06:42] VITALS: RESP 14
--- NOTE | 2018-08-16 12:16 | P.PN ---
Progress Note - Text Progress Note Date: 08/16/18 Over history: Patient is seen in cross coverage today. She reports that she did sleep last night. She seems to relay that she is tolerating the psychotropic medications well. She was started on Risperdal yesterday. She verbalizes that her appetite could be better. Mental status exam: She is alert and cooperative with the interview. Her speech is fluent, not rapid or pressured. Her mood is described as better. She denies any thoughts of harm to self or others. She denies any auditory or visual hallucinations. She does not seem to verbalize any aamya delusional statements. She does not show any agitation. Plan: Patient will be maintained on current psychotropic medication regimen. Continue to monitor for any medication side effects and monitor her ongoing response to treatment. We'll continue to cover this patient to the weekend.
[2018-08-16] MEDS: risperiDONE 1 MG TAB PO SCH ×2 (21:01→21:08)
[2018-08-16] MEDS: TOPIRAMATE 25 MG TAB PO SCH ×2 (21:01→21:11)
--- NOTE | 2018-08-17 15:14 | P.PN ---
Progress Note - Text Progress Note Date: 08/17/18 Interval history: Patient is seen in cross coverage again today. She relays that she feels like her medication gives her side effects of some agitation as well as affecting her memory. We did discuss that with initially starting medications there can be some adjustment side effects which can improve. She is directed to continue to verbalize any side effects with her primary psychiatrist. She also relays that she would like to follow-up on an outpatient with someone who can help her with PTSD-like symptoms. She does feel like her mood is improved overall. Mental status exam: She is alert and cooperative with the interview. Her speech is fluent, not rapid or pressured. Her responses are somewhat vague at times. Her mood she describes his overall improved. She denies any thoughts of harm to self or others. She does not verbalize any hallucinations or amaya delusions. She does not show any agitation. She is able show some range of affect. Plan: We'll maintain psychotropic medications as current continue to monitor for any medication side effects. She will discuss further with Dr. Noriega tomorrow. Continue to monitor her ongoing response to treatment.
[2018-08-17] MEDS: risperiDONE 1 MG TAB PO SCH (20:03)
[2018-08-17] MEDS: TOPIRAMATE 25 MG TAB PO SCH ×2 (20:04→23:04)
[2018-08-18 01:22] VITALS: BP 126/85; PULSE 117; TEMP 98.1
--- NOTE | 2018-08-18 11:53 | P.DS ---
Providers Date of admission: 08/08/18 12:45 Expected date of discharge: 08/18/18 Attending physician: Chet Noriega DO Consults: 08/08/18 13:50 Consult Physician Routine Consulting Provider: Lucie Wayne Consult Reason/Comments: history and physical Do you want consulting provider notified?: Yes Primary care physician: Fouzia Joseph - Discharge Diagnosis(es) (1) Major depression with psychotic features This is a 28-year-old female who presents to the emergency department with her . Patient was brought in because police were called to the scene because the patient was trying to jump out of a second-story window according to the prior to that she was trying to drink some sort of chemical spray. states this is happened in the past and she had to be admitted to a psychiatric cabral. Patient is supposed be taking some medications but no longer takes any. states over the last year she's been doing pretty good but she occasionally has episodes where she's not making sense and is worried about her ex-boyfriend coming and getting her. Patient again was making those statements this week but the symptoms have gotten progressively worse and her behavior has become more and more bizarre according to the . states that she is in fear that someone is going to hurt her and it's always related to her ex-boyfriend. states quite often this week she was saying things that make no sense at all to him. He does not believe she is doing any drugs besides marijuana. Patient herself indicates that nothing hurts her and she has no physical complaints and she does agree she needs to be here. Patient also states that she has been having thoughts that someone is trying to harm her. - Related Data Home Medications Medication Instructions Recorded Confirmed Multivitamins, Thera [Multivitamin 1 tab PO DAILY 08/08/18 08/08/18 (formulary)] Xanax (Unknown Dose) 0.25 tab PO QID PRN 08/08/18 08/08/18 Allergies Allergy/AdvReac Type Severity Reaction Status Date / Time No Known Allergies Allergy Verified 08/08/18 08:15 Past Medical History Past Medical History: Unable to Obtain History of Any Multi-Drug Resistant Organisms: None Reported Past Surgical History: Unable to Obtain Past Psychological History: Unable to Obtain Smoking Status: Unknown if ever smoked Past Alcohol Use History: Unable to Obtain Past Drug Use History: None Reported Current Visit: Yes Status: Acute Priority: Low Hospital Course: She was admitted on formal voluntary 15 minute checks and instructed on cabral milieu therapeutic environment expectations. She'll be evaluated by psychiatry , medicine, social work, nursing staff, and recreational therapy and integrated in the cabral milieu therapeutic environment. Risperdal 1 mg by mouth daily at bedtime and topamax 50 mg by mouth daily at bedtime. Discussed risk benefit ratio with the patient. Was seen on a daily basis and teamed and a multi specialty group for progress and disposition. The patient presents alert, pleasant, and cooperative. There calmly seated without any agitated behavior. [She] reports that [her] mood is good. Affect is congruent and euthymic. [She] deny having any suicidal or homicidal ideation intent or plan. [She] denies any auditory or visual hallucinations. There is no evidence of any delusional thought content. [Her] thought process is linear and goal-directed. [Her] speech is fluent and nonpressured. [Her] memory and concentration is grossly intact for the purposes of this session. She is stable at discharge and talked with the Daniel at [phone] and discussed with him that she will need DBT and individual therapy with a psychiatrist to evaluate her medications. She is very sensitive to medication and meeting only one week for her compliant with the meds and lose her paranoia and delusions. When Talking with Her Daniel Is Suggested Using cannabinoids and discuss the benefit risk ratio of using cannabinoids and treating her. Heart: Both the research done in [place] and here in [place] and treatment for paranoia should not include cannabinoids for it will make her paranoia worse. Patient Condition at Discharge: Stable Plan - Discharge Summary Discharge Rx Participant: Yes New Discharge Prescriptions: New risperiDONE [RisperDAL] 1 mg PO HS 30 Days #30 tab Topiramate [Topamax] 50 mg PO 2100 30 Days #60 tab Discharge Medication List Topiramate [Topamax] 50 mg PO 2100 30 Days #60 tab 08/18/18 [Rx] risperiDONE [RisperDAL] 1 mg PO HS 30 Days #30 tab 08/18/18 [Rx] Follow up Appointment(s)/Referral(s): [facility] [Outside] - 08/21/18 11:30 am (please call when you get home and do phone intake. ) Fouzia Joseph, [Primary Care Provider] - 1-2 days Patient Instructions/Handouts: Depression (GEN), Anxiety (GEN), Suicide Prevention (GEN) Activity/Diet/Wound Care/Special Instructions: Activity and diet as tolerated. Avoid the use of street drugs and alcohol. Take all medications as prescribed. When you are in need of refills on your medications please contact your medical provider and/or outpatient psychiatrist to have this done. Please go to scheduled outpatient appointment for aftercare treatment. If symptoms return or become worse, call the crisis line at [phone] and/or go to the nearest emergency room for evaluation. Discharge Disposition: HOME SELF-CARE
== END 2018-08-18 12:44 | disposition home or self-care (01) | DRG 885 ==
LOC: EC 07:11 → 3MHU 12:45
PROVIDERS: ADMIT Psychiatry & Neurology Psychiatry; ATTEND Psychiatry & Neurology Psychiatry
DX: F33.3 Major depressive disorder, recurrent, severe with psychotic symptoms (principal); F12.10 Cannabis abuse, uncomplicated; F41.9 Anxiety disorder, unspecified; F60.0 Paranoid personality disorder; R13.10 Dysphagia, unspecified; T65.892A Toxic effect of other specified substances, intentional self-harm, initial encounter; T14.91XA Suicide attempt, initial encounter; Z79.899 Other long term (current) drug therapy; T43.96XA Underdosing of unspecified psychotropic drug, initial encounter; Z81.8 Family history of other mental and behavioral disorders; Z62.810 Personal history of physical and sexual abuse in childhood; Z56.0 Unemployment, unspecified; R10.9 Unspecified abdominal pain
CPT/HCPCS: 36415; 70450; 80053; 80306; 80320; 81001; 81025; 84443; 85025; 87086; 90686; 93005; 99285

== ENCOUNTER 2019-02-27 17:22 | Emergency (ER) | payer OTHER ==
[2019-02-27 19:42] LABS: Basophils % (A) 0 %; Eosinophils # (A) 0.1 k/uL (0-0.7); Eosinophils % (A) 1 %; Lymphocytes % (A) 32 %; MCH 28.2 pg (25.0-35.0); MCHC 31.8 g/dL (31.0-37.0); MCV 88.7 fL (80.0-100.0); Mean Platelet Volume 7.8; Monocytes # (A) 0.3 k/uL (0-1.0); Monocytes % (A) 4 %; Neutrophils # (A) 3.7 k/uL (1.3-7.7); Neutrophils % (A) 59 %; Platelet Count 248 k/uL (150-450); RBC 4.63 m/uL (3.80-5.40); RDW 15.5 % (11.5-15.5); WBC 6.2 k/uL (3.8-10.6)
[2019-02-27 19:53] LABS: ALT 29 U/L (9-52); AST 29 U/L (14-36); African American GFR (CKD) >90 (>60 ml/min/1.73 sqM); Albumin 4.2 g/dL (3.5-5.0); Alkaline Phosphatase 68 U/L (38-126); Anion Gap 9 mmol/L; Blood Urea Nitrogen 14 mg/dL (7-17); C Reactive Protein 5.7 mg/L (<10.0); Carbon Dioxide 25 mmol/L (22-30); Chloride 104 mmol/L (98-107); Glucose 94 mg/dL (74-99); Potassium 4.2 mmol/L (3.5-5.1); Sodium 138 mmol/L (137-145); Total Bilirubin 0.2 mg/dL (0.2-1.3); Total Protein 7.7 g/dL (6.3-8.2)
[2019-02-27 21:53] LABS: Amylase 82 U/L (30-110); Lipase 140 U/L (23-300)
[2019-02-27 21:57] LABS: Appearance,Urine Clear (Clear); Bilirubin,Urine Negative (Negative); Blood,Urine Negative (Negative); Color,Urine Light Yellow; Glucose,Urine (UA) Negative (Negative); Ketones,Urine Negative (Negative); Leukocyte Esterase,Urine Negative (Negative); Nitrite,Urine Negative (Negative); PH, Urine 5.5 (5.0-8.0); Protein,Urine Negative (Negative); Specific Gravity,Urine 1.013 (1.001-1.035); Urobilinogen,Urine <2.0 mg/dL (<2.0)
--- NOTE | 2019-02-27 22:22 | ED ---
General Adult HPI - General Chief complaint: Recheck/Abnormal Lab/Rx Stated complaint: abdominal pain Time Seen by Provider: 02/27/19 21:06 Source: patient Mode of arrival: ambulatory Limitations: no limitations - History of Present Illness Initial comments: This patient is 29-year-old woman who presents with a constellation of complaints. The patient's main complaint appears to be low back and hip pains. She states that all of her symptoms have been going on for over 2 months and that she has seen her primary physician and discuss these and she is having current workup of these conditions. In addition to the back pain, she has been having some intermittent headaches, though she states she is scheduled to have an MRI related to this complaint. Also the patient has been having dyspareunia. She had a recent pelvic exam with Pap smear and She does have gynecology follow-up scheduled as well. Onset/Timin -: month(s) Location: back Radiation: non-radiation Quality: aching Consistency: constant Improves with: none Worsens with: none Associated Symptoms: denies other symptoms Treatments Prior to Arrival: none - Related Data Home Medications Medication Instructions Recorded Confirmed Alesse 1 tab PO DAILY 02/27/19 02/27/19 Biotin 5 mg PO DAILY 02/27/19 02/27/19 Krill Oil 500 mg PO DAILY 02/27/19 02/27/19 L.acidoph,Paracasei, B.lactis 1 cap PO DAILY 02/27/19 02/27/19 [Probiotic] Multivitamins, Thera [Multivitamin 1 tab PO DAILY 02/27/19 02/27/19 (formulary)] Allergies Allergy/AdvReac Type Severity Reaction Status Date / Time No Known Allergies Allergy Verified 02/27/19 21:47 Review of Systems ROS Statement: Those systems with pertinent positive or pertinent negative responses have been documented in the HPI. ROS Other: All systems not noted in ROS Statement are negative. Constitutional: Denies: fever, chills, weakness Respiratory: Denies: cough, dyspnea Cardiovascular: Denies: chest pain, palpitations, edema Gastrointestinal: Reports: abdominal pain. Denies: nausea, vomiting, diarrhea, constipation Genitourinary: Reports: dyspareunia. Denies: dysuria, hematuria, discharge, abnormal menses Musculoskeletal: Reports: back pain Skin: Denies: rash Neurological: Reports: headache. Denies: weakness, numbness, paresthesias Past Medical History Past Medical History: No Reported History History of Any Multi-Drug Resistant Organisms: None Reported Past Surgical History: No Surgical Hx Reported Past Anesthesia/Blood Transfusion Reactions: No Reported Reaction Past Psychological History: Bipolar, Schizophrenia Smoking Status: Never smoker Past Alcohol Use History: None Reported Past Drug Use History: None Reported General Exam Limitations: no limitations General appearance: alert, in no apparent distress Head exam: Present: atraumatic, normocephalic Eye exam: Present: normal appearance. Absent: scleral icterus, conjunctival injection ENT exam: Present: normal oropharynx Neck exam: Present: normal inspection Respiratory exam: Present: normal lung sounds bilaterally. Absent: respiratory distress, wheezes, rales, rhonchi, stridor Cardiovascular Exam: Present: regular rate, normal rhythm, normal heart sounds. Absent: systolic murmur, diastolic murmur, rubs, gallop GI/Abdominal exam: Present: soft. Absent: distended, tenderness, guarding, rebo und, rigid, mass Extremities exam: Present: normal inspection, normal capillary refill. Absent: pedal edema, calf tenderness Back exam: Present: normal inspection Neurological exam: Present: alert Skin exam: Present: warm, dry, intact, normal color. Absent: rash Course Vital Signs 02/27/19 18:55 Temperature 98.5 F Pulse Rate 67 Respiratory 16 Rate Blood Pressure 135/74 O2 Sat by Pulse 99 Oximetry Medical Decision Making - Lab Data Result diagrams: 02/27/19 19:33 02/27/19 19:33 Lab Results 02/27/19 02/27/19 02/27/19 Range/Units 19:33 19:33 19:33 WBC 6.2 (3.8-10.6) k/uL RBC 4.63 (3.80-5.40) m/uL Hgb 13.0 (11.4-16.0) gm/dL Hct 41.0 (34.0-46.0) % MCV 88.7 (80.0-100.0) fL MCH 28.2 (25.0-35.0) pg MCHC 31.8 (31.0-37.0) g/dL RDW 15.5 (11.5-15.5) % Plt Count 248 (150-450) k/uL Neutrophils % 59 % Lymphocytes % 32 % Monocytes % 4 % Eosinophils % 1 % Basophils % 0 % Neutrophils # 3.7 (1.3-7.7) k/uL Lymphocytes # 2.0 (1.0-4.8) k/uL Monocytes # 0.3 (0-1.0) k/uL Eosinophils # 0.1 (0-0.7) k/uL Basophils # 0.0 (0-0.2) k/uL Sodium 138 (137-145) mmol/L Potassium 4.2 (3.5-5.1) mmol/L Chloride 104 (98-107) mmol/L Carbon Dioxide 25 (22-30) mmol/L Anion Gap 9 mmol/L BUN 14 (7-17) mg/dL Creatinine 0.82 (0.52-1.04) mg/dL Est GFR (CKD-EPI)AfAm >90 (>60 ml/min/1.73 sqM) Est GFR (CKD-EPI)NonAf >90 (>60 ml/min/1.73 sqM) Glucose 94 (74-99) mg/dL Calcium 9.0 (8.4-10.2) mg/dL Total Bilirubin 0.2 (0.2-1.3) mg/dL AST 29 (14-36) U/L ALT 29 (9-52) U/L Alkaline Phosphatase 68 (38-126) U/L C-Reactive Protein 5.7 (<10.0) mg/L Total Protein 7.7 (6.3-8.2) g/dL Albumin 4.2 (3.5-5.0) g/dL Amylase 82 (30-110) U/L Lipase 140 (23-300) U/L Urine Color Urine Appearance (Clear) Urine pH (5.0-8.0) Ur Specific [place] (1.001-1.035) Urine Protein (Negative) Urine Glucose (UA) (Negative) Urine Ketones (Negative) Urine Blood (Negative) Urine Nitrite (Negative) Urine Bilirubin (Negative) Urine Urobilinogen (<2.0) mg/dL Ur Leukocyte Esterase (Negative) Urine HCG, Qual (Not Detectd) 02/27/19 02/27/19 Range/Units 21:42 21:42 WBC (3.8-10.6) k/uL RBC (3.80-5.40) m/uL Hgb (11.4-16.0) gm/dL Hct (34.0-46.0) % MCV (80.0-100.0) fL MCH (25.0-35.0) pg MCHC (31.0-37.0) g/dL RDW (11.5-15.5) % Plt Count (150-450) k/uL Neutrophils % % Lymphocytes % % Monocytes % % Eosinophils % % Basophils % % Neutrophils # (1.3-7.7) k/uL Lymphocytes # (1.0-4.8) k/uL Monocytes # (0-1.0) k/uL Eosinophils # (0-0.7) k/uL Basophils # (0-0.2) k/uL Sodium (137-145) mmol/L Potassium (3.5-5.1) mmol/L Chloride (98-107) mmol/L Carbon Dioxide (22-30) mmol/L Anion Gap mmol/L BUN (7-17) mg/dL Creatinine (0.52-1.04) mg/dL Est GFR (CKD-EPI)AfAm (>60 ml/min/1.73 sqM) Est GFR (CKD-EPI)NonAf (>60 ml/min/1.73 sqM) Glucose (74-99) mg/dL Calcium (8.4-10.2) mg/dL Total Bilirubin (0.2-1.3) mg/dL AST (14-36) U/L ALT (9-52) U/L Alkaline Phosphatase (38-126) U/L C-Reactive Protein (<10.0) mg/L Total Protein (6.3-8.2) g/dL Albumin (3.5-5.0) g/dL Amylase (30-110) U/L Lipase (23-300) U/L Urine Color Light Yellow Urine Appearance Clear (Clear) Urine pH 5.5 (5.0-8.0) Ur Specific [place] 1.013 (1.001-1.035) Urine Protein Negative (Negative) Urine Glucose (UA) Negative (Negative) Urine Ketones Negative (Negative) Urine Blood Negative (Negative) Urine Nitrite Negative (Negative) Urine Bilirubin Negative (Negative) Urine Urobilinogen <2.0 (<2.0) mg/dL Ur Leukocyte Esterase Negative (Negative) Urine HCG, Qual Not Detected (Not Detectd) Disposition Clinical Impression: Abdominal pain Disposition: HOME SELF-CARE Condition: Good Instructions (If sedation given, give patient instructions): Abdominal Pain (ED) Is patient prescribed a controlled substance at d/c from ED?: No Referrals: Zulma Garcia MD [Primary Care Provider] - 1-2 days
--- NOTE | 2019-02-27 22:27 | XR ---
EXAM: XR Abdomen, 1 View CLINICAL HISTORY: : abdominal pain TECHNIQUE: Frontal supine view of the abdomen/pelvis. COMPARISON: No relevant prior studies available. FINDINGS: Gastrointestinal tract: Unremarkable. No dilation. Bones/joints: Unremarkable. IMPRESSION: Normal abdominal x-ray.
[2019-02-28 01:16] VITALS: BP 109/79; PULSE 73; RESP 18; TEMP 97.7
== END 2019-02-28 01:16 | disposition home or self-care (01) ==
LOC: EC 17:22
DX: R10.9 Unspecified abdominal pain (principal); N94.10 Unspecified dyspareunia; M54.5 Low back pain; Z79.899 Other long term (current) drug therapy
CPT/HCPCS: 36415; 74018; 80053; 81003; 81025; 82150; 83690; 85025; 86140; 99284

== ENCOUNTER → 2019-04-22 | Outpatient (CLI) | payer OTHER ==
--- NOTE | 2019-04-23 16:04 | US ---
EXAMINATION TYPE: US pelvic complete DATE OF EXAM: 04/22/2019 COMPARISON: NONE CLINICAL HISTORY: R10.2 Pelvic Pain, N94.1 dyspareunia. Vaginal pain TECHNIQUE: . Transabdominal sonographic images of the pelvis were acquired. Date of LMP: 1 week ago EXAM MEASUREMENTS: Uterus: 6.7 x 3.5 x 3.9 cm Endometrial Stripe: 0.5 cm Right Ovary: 2.1 x 2.1 x 1.3 cm Left Ovary: 2.6 x 2.4 x 1.8 cm 1. Uterus: Anteverted wnl 2. Endometrium: wnl 3. Right Ovary: wnl 4. Left Ovary: wnl 5. Bilateral Adnexa: wnl 6. Posterior cul-de-sac: wnl IMPRESSION: 1. Normal pelvic ultrasound
== END | disposition home or self-care (01) ==
LOC: RADUSWWP 16:23
PROVIDERS: ATTEND Obstetrics & Gynecology
DX: N94.10 Unspecified dyspareunia (principal); R19.00 Intra-abdominal and pelvic swelling, mass and lump, unspecified site; R10.2 Pelvic and perineal pain
CPT/HCPCS: 76856

== ENCOUNTER 2020-01-15 19:36 | Inpatient (IN) | payer OTHER ==
--- NOTE | 2020-01-15 20:40 | ED ---
Psych HPI - General Source: patient, police Mode of arrival: ambulatory <Lee Batista - Last Filed: 01/15/20 20:37> <Sukh Loza - Last Filed: 01/16/20 10:10> - General Chief Complaint: Psychiatric Symptoms Stated Complaint: Mental health Time Seen by Provider: 01/15/20 20:11 - History of Present Illness Initial Comments: Patient is a 30-year-old female with history of acute psychosis and depression presenting to emergency Department for psychiatric evaluation. Patient states she has been experiencing PTSD symptoms today feeling "very distraught"due to recent troubles with her home. Patient states that she called the room service waiter multiple times because she was becoming very paranoid. Patient states she would like to be evaluated by psychiatric staff. States she would not like to stay in the hospital. States she is looking for medication to help her condition. Denies any suicidal, homicidal thoughts or ideations. (Lee Batista) - Related Data Home Medications Medication Instructions Recorded Confirmed Biotin 5 mg PO TID 02/27/19 01/15/20 Loratadine [Claritin] 10 mg PO HS 01/15/20 01/15/20 cloNIDine HCL [Catapres] 0.1 mg PO HS 01/15/20 01/15/20 Allergies Allergy/AdvReac Type Severity Reaction Status Date / Time No Known Allergies Allergy Verified 01/15/20 22:03 Review of Systems ROS Other: All systems not noted in ROS Statement are negative. <Lee Batista - Last Filed: 01/15/20 20:37> ROS Other: All systems not noted in ROS Statement are negative. <Sukh Loza - Last Filed: 01/16/20 10:10> ROS Statement: Those systems with pertinent positive or pertinent negative responses have been documented in the HPI. Past Medical History Past Medical History: No Reported History History of Any Multi-Drug Resistant Organisms: None Reported Past Surgical History: No Surgical Hx Reported Past Anesthesia/Blood Transfusion Reactions: No Reported Reaction Past Psychological History: Bipolar, Schizophrenia Smoking Status: Never smoker Past Alcohol Use History: None Reported Past Drug Use History: None Reported <Lee Batista - Last Filed: 01/15/20 20:37> General Exam Limitations: no limitations General appearance: alert, in no apparent distress, anxious Head exam: Present: atraumatic, normocephalic, normal inspection Eye exam: Present: normal appearance, PERRL, EOMI Pupils: Present: normal accommodation ENT exam: Present: normal exam, normal oropharynx, mucous membranes moist, TM's normal bilaterally, normal external ear exam Neck exam: Present: normal inspection, full ROM Respiratory exam: Present: normal lung sounds bilaterally Cardiovascular Exam: Present: regular rate, normal rhythm, normal heart sounds Extremities exam: Present: normal inspection, full ROM Back exam: Present: normal inspection, full ROM Neurological exam: Present: alert, oriented X3 Psychiatric exam: Present: normal affect, anxious Skin exam: Present: warm, dry, intact, normal color <Lee Batista - Last Filed: 01/15/20 20:37> Course Vital Signs 01/15/20 01/16/20 19:49 07:00 Temperature 97.8 F 97.8 F Pulse Rate 72 75 Respiratory 18 17 Rate Blood Pressure 132/86 136/83 O2 Sat by Pulse 98 100 Oximetry Medical Decision Making <Sukh Loza - Last Filed: 01/16/20 10:10> - Medical Decision Making Patient seen by mental health services with plans for admission. Patient reevaluated by myself, Dr. Loza. Patient admits to feeling paranoid and not sleeping. Patient also admits to not being on medication and feels would make her better. Positive clinical certificate completed. (Sukh Loza) - Lab Data Lab Results 01/15/20 Range/Units 20:40 Urine Opiates Screen Not Detected (NotDetected) Ur Oxycodone Screen Not Detected (NotDetected) Urine Methadone Screen Not Detected (NotDetected) Ur Propoxyphene Screen Not Detected (NotDetected) Ur Barbiturates Screen Not Detected (NotDetected) U Tricyclic Antidepress Not Detected (NotDetected) Ur Phencyclidine Scrn Not Detected (NotDetected) Ur Amphetamines Screen Not Detected (NotDetected) U Methamphetamines Scrn Not Detected (NotDetected) U Benzodiazepines Scrn Not Detected (NotDetected) Urine Cocaine Screen Not Detected (NotDetected) U Marijuana (THC) Screen Detected H (NotDetected) Disposition <Lee Batista - Last Filed: 01/15/20 20:37> Is patient prescribed a controlled substance at d/c from ED?: No Decision Time: 10:10 <Sukh Loza - Last Filed: 01/16/20 10:10> Clinical Impression: Acute psychosis Disposition: TRANSFER TO PSYCH HOSP/UNIT
[2020-01-15 21:31] LABS: Amphetamine Screen,Urine Not Detected (NotDetected); Barbiturate Screen,Urine Not Detected (NotDetected); Benzodiazepines Screen,Urine Not Detected (NotDetected); Cocaine Screen,Urine Not Detected (NotDetected); Methadone Screen, Urine Not Detected (NotDetected); Opiate Screen,Urine Not Detected (NotDetected); Oxycodone Screen, Urine Not Detected (NotDetected); Phencyclidine Screen,Urine Not Detected (NotDetected); Tricyclic Antidepressant,Urine Not Detected (NotDetected); Urn Cannabinoid Scrn Detected (NotDetected)
[2020-01-16] MEDS ORDERED: ONDANSETRON ODT 4 MG TAB PO STA (04:55)
[2020-01-16] MEDS ORDERED: LORazepam 1 MG TAB PO STA (04:55)
[2020-01-16] MEDS: ARIPiprazole 2 MG TAB PO STA ×2 (08:03→08:31)
[2020-01-16] MEDS ORDERED: MAGNESIUM HYDROXIDE 2,400 MG/10 ML CUP PO PRN (09:57)
[2020-01-16] MEDS ORDERED: LORazepam 1 MG TAB PO PRN (09:57)
[2020-01-16] MEDS ORDERED: ZIPRASIDONE 20 MG VIAL IM PRN (09:57)
[2020-01-16] MEDS ORDERED: ACETAMINOPHEN TAB 325 MG TAB PO PRN (09:57)
[2020-01-16] MEDS ORDERED: MAG HYDROX/AL HYDROX/SIMETH 30 ML CUP PO PRN (09:57)
[2020-01-16 12:18] LABS: Appearance,Urine Clear (Clear); Bilirubin,Urine Negative (Negative); Blood,Urine Negative (Negative); Color,Urine Colorless; Glucose,Urine (UA) Negative (Negative); Ketones,Urine 1+ (Negative); Leukocyte Esterase,Urine Negative (Negative); Nitrite,Urine Negative (Negative); Protein,Urine Negative (Negative); Specific Gravity,Urine 1.003 (1.001-1.035); Urobilinogen,Urine <2.0 mg/dL (<2.0)
[2020-01-16] MEDS: PALIPERIDONE 3 MG TAB.ER.24 PO SCH (13:25)
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
[2020-01-16] MEDS: LORATADINE 10 MG TAB PO SCH (21:33)
[2020-01-17 06:26] LABS: ALT 25 U/L (4-34); AST 42 U/L (14-36); African American GFR (CKD) >90 (>60 ml/min/1.73 sqM); Albumin 3.9 g/dL (3.5-5.0); Alkaline Phosphatase 65 U/L (38-126); Anion Gap 11 mmol/L; Basophils % (A) 1 %; Blood Urea Nitrogen 8 mg/dL (7-17); Calcium 8.9 mg/dL (8.4-10.2); Carbon Dioxide 24 mmol/L (22-30); Chloride 105 mmol/L (98-107); Eosinophils # (A) 0.1 k/uL (0-0.7); Eosinophils % (A) 2 %; Glucose 82 mg/dL (74-99); HCT 42.1 % (34.0-46.0); HGB 12.9 gm/dL (11.4-16.0); Lymphocytes # (A) 2.7 k/uL (1.0-4.8); Lymphocytes % (A) 51 %; MCH 27.6 pg (25.0-35.0); MCHC 30.6 g/dL (31.0-37.0); MCV 90.2 fL (80.0-100.0); Mean Platelet Volume 9.1; Monocytes # (A) 0.4 k/uL (0-1.0); Monocytes % (A) 7 %; Neutrophils # (A) 1.9 k/uL (1.3-7.7); Neutrophils % (A) 36 %; Non-African American GFR(CKD) 85 (>60 ml/min/1.73 sqM); Platelet Count 227 k/uL (150-450); RBC 4.67 m/uL (3.80-5.40); RDW 15.3 % (11.5-15.5); Sodium 140 mmol/L (137-145); Total Bilirubin 0.4 mg/dL (0.2-1.3); Total Protein 7.5 g/dL (6.3-8.2); WBC 5.3 k/uL (3.8-10.6)
[2020-01-17] MEDS: PALIPERIDONE 3 MG TAB.ER.24 PO SCH (11:06)
--- NOTE | 2020-01-17 12:37 | P.PN ---
Progress Note - Text Interval history: The patient is found in group she follows me to an interview room. She indicates her mood is better today. She does continue to describe paranoid and persecutory thoughts regarding her safety. She did comply with the invega yesterday but states she felt tired with it. We discussed that she may be acclimating to the medicine and we could move it to bedtime. She refused the morning dose. She will give consideration to taking it in the evening. Mental status exam: The patient is alert she's just thrown clothing hygiene grooming adequate eye contact is appropriate. Speech is fluent spontaneous nonpressured. He indicates her mood is better but she still is concerned about being unsafe. She demonstrates some mild disorganization of thought. She reports no suicidal or homicidal ideation intent or plan. She demonstrates no verbal or physical aggressiveness. She demonstrates no involuntary cognitive movements. Insight and judgment limited. She continues to state that she did not require admission here and is hoping to go home very soon. She is endorsing no auditory or visual hallucinations but again continues to have persecutory thoughts. Plan: The patient will be offered the invega 3 mg but I will move it to bedtime. We will monitor her compliance. She is encouraged to continue participating in the milieu. Vital signs reviewed. She requires continued psychiatric hospitalization for evaluation and treatment of her psychosis.
--- NOTE | 2020-01-17 13:36 | P.MDCNMH ---
History of Present Illness H&P Date: 01/17/20 Chief Complaint: Medical management 22-year-old female with history of bipolar and schizophrenia presents to [facility] for acute psychosis and depression. [facility] physicians has been consulted for medical management of this patient. Patient reports chest pain, that has currently resolved, that started yesterday. Patient states that she was laughing, when she experienced right-sided chest pain along with left lower quadrant abdominal pain. Her pain did not change with movement or deep inspiration. Patient states that she experienced this chest pain 10 times yesterday, lasting for 5 seconds, unable to describe it any further. Patient states that her chest pain Better after she stopped laughing. She has not had any chest pain or abdominal pain today. She denies any dysuria but does report a history of constipation, currently under control. Patient reports her last menstrual period to be in October. Patient states that her menstrual cycles are usually regular but can become irregular when she is stressed out. She denies any headache, lower extremity edema, nausea or vomiting, fever or chills, cough, shortness of breath, palpitations, changes in urination. No changes in appetite or weight. She denies any dizziness, numbness/weakness/tingling of the extremities. Her current vital signs show tachycardia with heart rate of 109. CBC is unremarkable. CMP shows AST of 42. Urinalysis showed 1+ ketones. UDS is positive for marijuana. Review of Systems Pertinent positives and negatives as discussed in HPI, a complete review of systems was performed and all other systems are negative. Past Medical History Past Medical History: No Reported History History of Any Multi-Drug Resistant Organisms: None Reported Past Surgical History: No Surgical Hx Reported Past Anesthesia/Blood Transfusion Reactions: No Reported Reaction Past Psychological History: Bipolar, Schizophrenia Additional Psychological History / Comment(s): Per , diagnosed in [place] 2016 Smoking Status: Never smoker Past Alcohol Use History: None Reported Past Drug Use History: None Reported Medications and Allergies Home Medications Medication Instructions Recorded Confirmed Type Biotin 5 mg PO TID 02/27/19 01/16/20 History Loratadine [Claritin] 10 mg PO HS 01/15/20 01/16/20 History cloNIDine HCL [Catapres] 0.1 mg PO HS 01/15/20 01/16/20 History Allergies Allergy/AdvReac Type Severity Reaction Status Date / Time No Known Allergies Allergy Verified 01/16/20 11:11 Physical Exam Vitals: Vital Signs Temp Pulse BP Pulse Ox 01/17/20 06:50 98.3 F 109 H 125/71 97 01/16/20 22:38 97.8 F 01/16/20 18:12 99.3 F Intake and Output 01/16/20 01/17/20 01/17/20 22:59 06:59 14:59 Other: Weight 65.4 kg General: [non toxic], [no distress], [appears at stated age] Derm: [warm], [dry] Head: [atraumatic], [normocephalic], [symmetric] Eyes: [EOMI], [no lid lag], [anicteric sclera] Mouth: [no lip lesion], [mucus membranes moist] Cardiovascular: [S1S2 reg], [tachycardia], [positive posterior tibial pulse bilateral], Lungs: [CTA bilateral], [no rhonchi, no rales] , [no accessory muscle use] Abdominal: [soft], [ nontender to palpation], [no guarding], [no appreciable organomegaly] Ext: [no gross muscle atrophy], [no edema], [no contractures] Neuro: [ CN II-XI grossly intact], [no focal neuro deficits] Psych: [Alert], [oriented], [appropriate affect] Cranial Nerve Examination - Cranial Nerves Cranial Nerve II- Optic: Intact Cranial Nerve III- Oculomotor: Intact Cranial Nerve IV- Trochlear: Intact Cranial Nerve V- Trigeminal: Intact Cranial Nerve - Abducens: Intact Cranial Nerve VII- Facial: Intact Cranial Nerve VIII- Auditory: Intact Cranial Nerve IX- Glossopharyngeal: Intact Cranial Nerve X- Vagus: Intact Cranial Nerve XI- Accessory: Intact Cranial Nerve XII- Hypoglossal: Intact Results CBC & Chem 7: 01/17/20 05:50 01/17/20 05:50 Labs: Abnormal Lab Results - Last 24 Hours (Table) 01/17/20 01/17/20 Range/Units 05:50 05:50 MCHC 30.6 L (31.0-37.0) g/dL AST 42 H (14-36) U/L Assessment and Plan Assessment: Tachycardia with right-sided chest pain Elevated AST Seasonal ALLERGIES Marijuana use Ketonuria Patient with heart rate of 109 and right-sided chest pain that started when she was laughing which is currently resolved. Her Wells score is 1.5 which puts her at a low risk for PE. She is also saturating 97% on room air. There is low concerns for PE. We will however obtain an EKG. We will obtain TSH. Her right-sided chest pain is atypical for cardiac chest pain and is likely musculoskeletal in nature. She does have an elevated AST of 42. Patient denies any alcohol use. Given that she is on atypical antipsychotic medication, will check an A1c and lipid panel. Continue Claritin for seasonal ALLERGIES. Patient is counseled on illicit drug use cessation. Her ketonuria is likely related to dehydration and she is encouraged hydration by mouth. Thank you for this consult. Please call with any additional questions or concerns.
[2020-01-17] MEDS ORDERED: PALIPERIDONE 3 MG TAB.ER.24 PO SCH (21:00)
[2020-01-17] MEDS: LORATADINE 10 MG TAB PO SCH (21:13)
[2020-01-18 13:38] LABS: Hemoglobin A1C 4.9 % (4.0-6.0)
--- NOTE | 2020-01-18 13:47 | P.PN ---
Subjective Progress Note Date: 01/18/20 Principal diagnosis: Unspecified psychotic disorder, rule out major depressive disorder with psychotic features, rule out bipolar disorder with psychotic features, rule out history of PTSD, cannabis use disorder I reviewed the medical record, interviewed the patient and discuss her treatment and treatment plan during team meeting. The police brought her to the Medical Center on a daily of admission. She talked about having called the police because she was acutely distressed and had the belief that her was trying to harm her. She told the admitting psychiatrist that she believes that her social media was "being hacked". She talked about being fearful her and felt threatened by him when he was holding a drum and drumsticks. During our interview she described a change in her mood for a week prior to admission. She stated that she was "feeling better" and engaging in or activities. In general, she gave the impression that she was more active than she had been previously. However she denied increased and activity are engaged in activity that resulted in self-harm. She developed a general suspiciousness towards her and talked about him "constraining" her. She alleged that she did not sleep for 24 hours prior to admission. On the day of admission she described increasing paranoia and a general belief that her was trying t o harm her. She denied that they have been in conflict. She denied that he has ever harmed, assaulted or abused her. She complained of sedation from the current dose of Invega. She requested to sw itch back to her outpatient medication Abilify. Her past history is significant than that her sister had a history of bipolar disorder and by suicide. Objective - Vital Signs Vital signs: Vital Signs Temp 99.0 F 01/18/20 12:49 Pulse 72 01/17/20 09:41 Resp 16 01/17/20 09:41 BP 108/52 01/17/20 09:41 Pulse Ox 99 01/17/20 09:41 Intake & Output 01/17/20 01/18/20 01/18/20 18:59 06:59 18:59 Weight 65.4 kg - Exam She presented as a casually groomed French female who was pleasant on approach. She made eye contact and attended to interview. She had no prominent distinguishing features or physical abnormalities. She had a blunted facial expression. She was alert and oriented to person, place and time. She had psychomotor retardation but no abnormal movements. Her speech was spontaneous, slow with decreased rhythm and volume. Her affect was labile but appropriate and not uncontrolled. She denied current suicidal ideation or wishes. She denied homicidal ideation. She denied feeling hopeless, helpless or worthless. She ruminated about the circumstances that brought her to the hospital including her concerns about her . She did not express ideas reference but had paranoid ideation and vague delusional beliefs. Her thinking was concrete but his associations were coherent and logical. She denied hallucinations and did not appear to be responding to internal stimuli. - Labs CBC & Chem 7: 01/17/20 05:50 01/17/20 05:50 Labs: Abnormal Lab Results - Last 24 Hours (Table) 01/17/20 Range/Units 05:50 HDL Cholesterol 37 L (40-60) mg/dL Assessment and Plan Assessment: She is a 30-year-old woman with history of a major mood disorder who presented to the psychiatric unit with paranoia, paranoid delusional beliefs, and changes in her mood with elements of depression and hypomania. Plan: Continue inpatient hospitalization. Continue safety precautions. Discontinue Invega and begin Abilify 2 mg daily and titrated according to clinical response and tolerance. Consider trial of a mood stabilizer such as Lamictal. Encourage participation in therapeutic groups and activities. Evaluate clinical status response to treatment daily basis.
[2020-01-18] MEDS: LORATADINE 10 MG TAB PO SCH (20:27)
[2020-01-19 06:58] VITALS: BP 106/64; PULSE 95; RESP 17
[2020-01-19] MEDS: ARIPiprazole 2 MG TAB PO SCH (08:20)
--- NOTE | 2020-01-19 14:47 | P.PN ---
Subjective Progress Note Date: 01/19/20 Principal diagnosis: Unspecified psychotic disorder, rule out major depressive disorder with psychotic features, rule out bipolar disorder with psychotic features, rule out history of PTSD, cannabis use disorder I reviewed the medical record, interviewed the patient and discuss her treatment and treatment plan during team meeting. The patient requested discharge. She stated that she is feeling "back to normal" she had a conversation with her yesterday and she feels that he now understands need for her to take her psychiatric medications and support her mental health treatment. She denies feeling paranoid and did not express paranoid ideations, thoughts or beliefs. She denied feeling depressed or having thoughts of self thoughts or suicide. I explained that we could not discharge her until recent resolve her involuntary status. She has not yet met with her floor coverings installer to discuss a deferral. Objective - Vital Signs Vital signs: Vital Signs Temp 98.4 F 01/19/20 13:00 Pulse 95 01/19/20 06:55 Resp 17 01/19/20 06:55 BP 106/64 01/19/20 06:55 Pulse Ox 100 01/19/20 06:55 - Exam She presented as a neatly dressed and casually groomed 30-year-old female who appeared much younger than her stated age. She made eye contact and attempted to interview. She had no distinguishing features or prominent physical abnormalities. She had a bright facial expression. She showed no abnormality of psychomotor activity. Her speech was spontaneous with normal rate, rhythm and volume. Affect was blunted but stable and appropriate. She denied suicidal ideation or wishes. She denied homicidal ideation. She denied feeling hopeless, helpless or worthless. She denied ideas reference, paranoid ideation, magical ideation or delusions. Her thinking was concrete but her associations were coherent and logical. She denied hallucinations and did not appear to be responding to internal stimuli. - Labs CBC & Chem 7: 01/17/20 05:50 01/17/20 05:50 Assessment and Plan Assessment: She appears much improved than on admission and his longer paranoid or expressing paranoid thoughts, feelings or ideation. She is denying side effects to initial dose of Abilify. Plan: Continue inpatient hospitalization. Continue safety precautions. Continue Abilify 2 mg daily and titrated according to clinical response and tolerance. Consider trial of a mood stabilizer such as Lamictal. Encourage participation in therapeutic groups and activities. Evaluate clinical status response to treatment daily basis. May consider discharge after she defers.
[2020-01-19] MEDS: LORATADINE 10 MG TAB PO SCH (21:22)
[2020-01-20] MEDS: ARIPiprazole 2 MG TAB PO SCH (07:52)
--- NOTE | 2020-01-20 12:18 | P.DS ---
Providers Date of admission: 01/16/20 09:56 Attending physician: Kurt Flores MD Consults: 01/16/20 10:27 Consult Physician Routine Consulting Provider: Bjorn Physician Consult Reason/Comments: H&P Do you want consulting provider notified?: Yes Primary care physician: Zulma Fosterko - Discharge Diagnosis(es) (1) Acute psychosis Current Visit: Yes Status: Acute Priority: Medium (2) Cannabis use disorder, mild, abuse Current Visit: Yes Status: Chronic Priority: Low Hospital Course: She is a 30-year-old female admitted to the psychiatric unit involuntarily with acute symptoms of psychosis. The police brought her to the Medical Center with a petition that stated "she felt suicidal for the past few days. No means. Has mental illness, no medications. He believes she has been hacked unsocial media. Request her medication is adjusted. Daniel states she has not slept in 5 days. Has PTSD and mental illness that HER thoughts. Attempted suicide last year." On admission she describes suicidal thoughts and described a belief that her social meeting was "hacked". She feels that she is being watched and followed. She also talked about hearing her would harm her. She acknowledged she hadn't slept for the last 2-3 days prior to admission. She denied experiencing auditory hallucinations or thoughts of harm towards others. This is her fourth psychiatric hospitalization. She was last admitted to this unit in 2018 discharge diagnosis of a psychotic disorder. We admitted her involuntarily to the psychiatric unit is care of this technical proposal writer. We completed comprehensive biopsychosocial assessment. The configuration consultant seed tester completed initial physical exam and medical history and diagnosed tachycardia with right sided chest pain, elevated AST and seasonal ALLERGIES. He did not believe that the chest pain was cardiac in origin. Her urine was positive for marijuana. Her TSH was normal at 1.8. We restarted Abilify 2 mg daily. Her paranoia, depression and sleep disturbances rapidly improved. She met with her court appointed finance attorney and deferred the probate hearing. She presented as a bright, cheerful and engaging. She participated in therapeutic groups and activities and posed no management problem. We recommended follow-up to community health due to her multiple psychiatric hospitalizations. Time of discharge she presented as a casually groomed young [place] female who looks younger than his stated age. She made eye contact and attended to interview. She had a anxious facial expression. She was alert and oriented to person, place and time. She showed no abnormality of psychomotor activity. She had no abnormal movements. Her speech was spontaneous with normal rate, rhythm and volume. His affect was anxious but appropriate. She denied suicidal ideation, wishes or homicidal ideation. She denied feeling hopeless, helpless or worthless. She did not express ideas reference, paranoid ideation or delusions. Her thinking was concrete but his associations were coherent and logical. She denied hallucinations and did not appear to be responding to internal stimuli. Patient Condition at Discharge: Stable Plan - Discharge Summary Discharge Rx Participant: No New Discharge Prescriptions: New ARIPiprazole [Abilify] 2 mg PO DAILY #30 tab Continue Biotin 5 mg PO TID Loratadine [Claritin] 10 mg PO HS Discontinued cloNIDine HCL [Catapres] 0.1 mg PO HS Discharge Medication List Biotin 5 mg PO TID 02/27/19 [History] Loratadine [Claritin] 10 mg PO HS 01/15/20 [History] ARIPiprazole [Abilify] 2 mg PO DAILY #30 tab 01/20/20 [Rx] Follow up Appointment(s)/Referral(s): Zulma Garcia MD [Primary Care Provider] - 1-2 days Patient Instructions/Handouts: Mood Disorders (DC), Psychotic Disorder (DC) Activity/Diet/Wound Care/Special Instructions: Activity and diet as tolerated. Avoid the use of street drugs and alcohol. Take all medications as prescribed. When you are in need of refills on your medications please contact your medical provider and/or outpatient psychiatrist to have this done. Please go to scheduled outpatient appointment for aftercare treatment. If symptoms return or become worse, call the crisis line at and/or go to the nearest emergency room for evaluation. Discharge Disposition: HOME SELF-CARE
[2020-01-20 14:48] VITALS: TEMP 98
== END 2020-01-20 14:26 | disposition home or self-care (01) | DRG 885 ==
LOC: EC 19:36 → 3MHU 01-16 09:56
PROVIDERS: ADMIT Psychiatry & Neurology Psychiatry; ATTEND Psychiatry & Neurology Psychiatry
DX: F23 Brief psychotic disorder (principal); R45.851 Suicidal ideations; F12.10 Cannabis abuse, uncomplicated; F31.9 Bipolar disorder, unspecified; F43.10 Post-traumatic stress disorder, unspecified; Z79.899 Other long term (current) drug therapy; Z91.5 Personal history of self-harm
CPT/HCPCS: 80053; 80061; 80306; 81003; 81025; 82075; 83036; 84443; 85025; 99285

== ENCOUNTER 2020-09-19 08:58 | Inpatient (IN) | payer MEDICAID, OTHER ==
--- NOTE | 2020-09-19 09:39 | ED ---
General Adult HPI - General Chief complaint: Psychiatric Symptoms Stated complaint: mental health Time Seen by Provider: 09/19/20 09:00 Source: patient, RN notes reviewed, old records reviewed Mode of arrival: ambulatory Limitations: no limitations - History of Present Illness Initial comments: This is a 30-year-old female who presents emergency Department with the . Patient states she believes that someone is trying to harm her and is stalking her. Patient states she questions whether could be her because his response to her concerns is odd to her. Patient denies any drinking or alcohol per patient denies any physical complaints today. Patient states she's had similar symptoms in the past and in the past she did try to harm her self once and was admitted to psych were. Patient states she supposed to be on Abilify but she stopped at a stop she didn't feel like it was working. - Related Data Home Medications Medication Instructions Recorded Confirmed Haira Root Extract 300 mg PO DAILY 09/19/20 09/19/20 Focus Factor 4 cap PO DAILY 09/19/20 09/19/20 Muse-3 Fatty Acids/Fish Oil [Fish 1 cap PO DAILY 09/19/20 09/19/20 Oil 1,000 mg Softgel] Allergies Allergy/AdvReac Type Severity Reaction Status Date / Time aripiprazole [From Abilify] AdvReac Nausea Verified 09/19/20 10:03 Review of Systems ROS Statement: Those systems with pertinent positive or pertinent negative responses have been documented in the HPI. ROS Other: All systems not noted in ROS Statement are negative. Past Medical History Past Medical History: No Reported History History of Any Multi-Drug Resistant Organisms: None Reported Past Surgical History: No Surgical Hx Reported Past Anesthesia/Blood Transfusion Reactions: No Reported Reaction Past Psychological History: Anxiety, Bipolar, Schizophrenia Smoking Status: Never smoker Past Alcohol Use History: None Reported Past Drug Use History: None Reported General Exam - General Exam Comments Initial Comments: GENERAL: Patient is well-developed and well-nourished. Patient is nontoxic and well- hydrated and is in mild distress. ENT: Neck is soft and supple. No significant lymphadenopathy is noted. Oropharynx is clear. Moist mucous membranes. Neck has full range of motion without eliciting any pain. EYES: The sclera were anicteric and conjunctiva were pink and moist. Extraocular movements were intact and pupils were equal round and reactive to light. Eyelids were unremarkable. PULMONARY: Unlabored respirations. Good breath sounds bilaterally. No audible rales rhonchi or wheezing was noted. CARDIOVASCULAR: There is a regular rate and rhythm without any murmurs gallops or rubs. ABDOMEN: Soft and nontender with normal bowel sounds. SKIN: Skin is clear with no lesions or rashes and otherwise unremarkable. NEUROLOGIC: Patient is alert and oriented x3. Cranial nerves II through XII are grossly intact. Motor and sensory are also intact. Normal speech, volume and content. Symmetrical smile. MUSCULOSKELETAL: Normal extremities with adequate strength and full range of motion. LYMPHATICS: No significant lymphadenopathy is noted PSYCHIATRIC: Patient is extremely anxious and she believes someone is trying to harm her. Patient also thinks that same person may be stalking her. Patient also states it is a possibility in her mind that it could be her . Limitations: no limitations Course Vital Signs 09/19/20 09:02 Temperature 99.1 F Pulse Rate 85 Respiratory 18 Rate Blood Pressure 132/80 O2 Sat by Pulse 96 Oximetry Medical Decision Making - Medical Decision Making EPS evaluated the patient and determined the patient needed to be admitted. I filled out a clinical certification because petition was done by the psychiatric team. - Lab Data Lab Results 09/19/20 Range/Units 09:23 Urine Opiates Screen Not Detected (NotDetected) Ur Oxycodone Screen Not Detected (NotDetected) Urine Methadone Screen Not Detected (NotDetected) Ur Propoxyphene Screen Not Detected (NotDetected) Ur Barbiturates Screen Not Detected (NotDetected) U Tricyclic Antidepress Not Detected (NotDetected) Ur Phencyclidine Scrn Not Detected (NotDetected) Ur Amphetamines Screen Not Detected (NotDetected) U Methamphetamines Scrn Not Detected (NotDetected) U Benzodiazepines Scrn Not Detected (NotDetected) Urine Cocaine Screen Not Detected (NotDetected) U Marijuana (THC) Screen Detected H (NotDetected) Disposition Clinical Impression: Acute psychosis Disposition: ADMITTED IP TO THIS HOSP Referrals: Zulma Garcia MD [Primary Care Provider] - 1-2 days Time of Disposition: 10:36
[2020-09-19 09:52] LABS: Phencyclidine Screen,Urine Not Detected (NotDetected); Urn Cannabinoid Scrn Detected (NotDetected)
[2020-09-19 09:53] LABS: Amphetamine Screen,Urine Not Detected (NotDetected); Barbiturate Screen,Urine Not Detected (NotDetected); Benzodiazepines Screen,Urine Not Detected (NotDetected); Cocaine Screen,Urine Not Detected (NotDetected); Methadone Screen, Urine Not Detected (NotDetected); Opiate Screen,Urine Not Detected (NotDetected); Oxycodone Screen, Urine Not Detected (NotDetected); Tricyclic Antidepressant,Urine Not Detected (NotDetected)
[2020-09-19] MEDS ORDERED: LORazepam 1 MG TAB PO PRN (13:47)
[2020-09-19] MEDS ORDERED: MAG HYDROX/AL HYDROX/SIMETH 30 ML CUP PO PRN (13:47)
[2020-09-19] MEDS ORDERED: MAGNESIUM HYDROXIDE 2,400 MG/10 ML CUP PO PRN (13:47)
[2020-09-19] MEDS ORDERED: ACETAMINOPHEN TAB 325 MG TAB PO PRN (13:47)
[2020-09-19] MEDS ORDERED: LORazepam 2 MG/ML INJ IM PRN (13:49)
[2020-09-19] MEDS ORDERED: HALOPERIDOL LACTATE 5 MG/ML 1 ML VIAL IM PRN (13:50)
[2020-09-19 16:16] LABS: Appearance,Urine Clear (Clear); Bilirubin,Urine Negative (Negative); Blood,Urine Negative (Negative); Color,Urine Yellow; Glucose,Urine (UA) Negative (Negative); Ketones,Urine Negative (Negative); Leukocyte Esterase,Urine Negative (Negative); Mucus,Urine Few /hpf; Nitrite,Urine Negative (Negative); PH, Urine 8.5 (5.0-8.0); Protein,Urine 1+ (Negative); RBC,Urine 1 /hpf (0-5); Squamous Epithelial Cell,Urine 12 /hpf (0-4); Urobilinogen,Urine <2.0 mg/dL (<2.0); WBC,Urine <1 /hpf (0-5)
--- NOTE | 2020-09-19 23:46 | P.CONS ---
History of Present Illness - Reason for Consult Consult date: 09/19/20 - History of Present Illness The patient was seen with the [facility] RN. I was never alone with the patient. Patient is a 30-year-old female with a PMH of bipolar disorder who presented to the emergency room with psychosis. The patient was admitted to the mental health unit where she was seen and evaluated. The patient was anxious and tearful during the evaluation and had flight of ideas. She reported chronic unchanged lower back pain. Denied additional complaints. Denied chest pain or shortness of fever, chills, cough, nausea, vomiting, abdominal pain. Denied tobacco use or substance abuse. Review of Systems Pertinent positives and negatives as discussed in HPI, a complete review of systems was performed and all other systems are negative. Past Medical History Past Medical History: No Reported History History of Any Multi-Drug Resistant Organisms: None Reported Past Surgical History: No Surgical Hx Reported Past Anesthesia/Blood Transfusion Reactions: No Reported Reaction Past Psychological History: Anxiety, Bipolar, Schizophrenia Smoking Status: Never smoker Past Alcohol Use History: None Reported Past Drug Use History: None Reported Medications and Allergies Home Medications Medication Instructions Recorded Confirmed Type ARIPiprazole [Abilify] 2 mg PO DAILY 09/19/20 09/19/20 History Ashwagandha Root Extract 300 mg PO DAILY 09/19/20 09/19/20 History Focus Factor 4 cap PO DAILY 09/19/20 09/19/20 History [place]-3 Fatty Acids/Fish Oil [Fish 1 cap PO DAILY 09/19/20 09/19/20 History Oil 1,000 mg Softgel] Allergies Allergy/AdvReac Type Severity Reaction Status Date / Time aripiprazole [From Abilify] AdvReac Nausea Verified 09/19/20 16:08 Physical Exam Vitals: Vital Signs Temp Pulse Pulse Resp BP BP Pulse Ox 09/19/20 18:00 98.1 F 09/19/20 13:42 97.8 F 71 18 131/75 09/19/20 09:02 99.1 F 85 18 132/80 96 Intake and Output 09/19/20 09/19/20 09/19/20 06:59 14:59 22:59 Other: Weight 68.039 kg General: non toxic, no distress, appears at stated age, normal weight Derm: no unusual rashes/lesions no unusual ecchymoses, warm, dry Head: atraumatic, normocephalic, symmetric Eyes: EOMI, no lid lag, anicteric sclera, pupils equal round reactive to light ENT: Nose and ears atraumatic, no thrush, no pharyngeal erythema Neck: No thyromegaly, no cervical lymphadenopathy, trachea midline, supple Mouth: no lip lesion, mucus membranes moist Cardiovascular: S1S2 reg, no murmur, positive posterior tibial pulse bilateral, no edema, capillary refill less than 2 seconds Lungs: CTA bilateral, no rhonchi, no rales , no accessory muscle use Abdominal: soft, nontender to palpation, no guarding, no appreciable organomegaly, normal bowel sounds Ext: no gross muscle atrophy, muscle strength 5 out of 5 in all 4 extremities grossly, no contractures, Neuro: CN II-XI grossly intact, light touch intact all 4 extremities, finger to nose within normal limits, Psych: Anxious female, oriented 3, flight of ideas Results Labs: Abnormal Lab Results - Last 24 Hours (Table) 09/19/20 09/19/20 Range/Units 09:23 09:23 Urine pH 8.5 H (5.0-8.0) Urine Protein 1+ H (Negative) Ur Squamous Epith Cells 12 H (0-4) /hpf Urine Mucus Few H (None) /hpf U Marijuana (THC) Screen Detected H (NotDetected) Assessment and Plan Plan: Marijuana abuse -Advised on the importance of cessation Psychosis -As per psychiatry Thank you for allowing us to participate in the care of this patient. We will follow peripherally. Do not hesitate to contact us with questions. Someone can be reached from the [facility] hospitalist group at all hours of the day at [phone].
[2020-09-20] MEDS ORDERED: MELATONIN 5 MG TABLET PO SCH (01:30)
[2020-09-20] MEDS ORDERED: MELATONIN 5 MG TABLET PO PRN (02:25)
[2020-09-20 07:24] LABS: ALT 29 U/L (4-34); AST 32 U/L (14-36); African American GFR (CKD) >90 (>60 ml/min/1.73 sqM); Albumin 4.4 g/dL (3.5-5.0); Alkaline Phosphatase 56 U/L (38-126); Anion Gap 8 mmol/L; Blood Urea Nitrogen 12 mg/dL (7-17); Calcium 9.5 mg/dL (8.4-10.2); Carbon Dioxide 26 mmol/L (22-30); Chloride 106 mmol/L (98-107); Glucose 95 mg/dL (74-99); Non-African American GFR(CKD) 85 (>60 ml/min/1.73 sqM); Potassium 4.2 mmol/L (3.5-5.1); Sodium 140 mmol/L (137-145); Total Bilirubin 0.5 mg/dL (0.2-1.3); Total Protein 8.2 g/dL (6.3-8.2)
[2020-09-20 07:36] LABS: Basophils % (A) 0 %; Eosinophils # (A) 0.1 k/uL (0-0.7); Eosinophils % (A) 1 %; HCT 42.2 % (34.0-46.0); HGB 13.9 gm/dL (11.4-16.0); Lymphocytes # (A) 2.2 k/uL (1.0-4.8); Lymphocytes % (A) 32 %; MCH 29.1 pg (25.0-35.0); MCHC 32.9 g/dL (31.0-37.0); MCV 88.5 fL (80.0-100.0); Mean Platelet Volume 8.1; Monocytes # (A) 0.5 k/uL (0-1.0); Monocytes % (A) 8 %; Neutrophils # (A) 3.9 k/uL (1.3-7.7); Neutrophils % (A) 56 %; Platelet Count 233 k/uL (150-450); RBC 4.77 m/uL (3.80-5.40); RDW 14.8 % (11.5-15.5); WBC 6.8 k/uL (3.8-10.6)
[2020-09-20] MEDS ORDERED: traZODone HCL 50 MG TAB PO PRN (09:46)
--- NOTE | 2020-09-20 10:05 | P.HP ---
Psychiatric H&P - . H&P Date: 09/20/20 History & Physical: Allergies Allergy/AdvReac Type Severity Reaction Status Date / Time aripiprazole From Abiliy AdvReac Nausea Verified 09/19/20 16:08 Vital Signs Temp 97.9 F 09/20/20 04:24 Pulse 92 09/20/20 04:24 Resp 16 09/20/20 04:24 BP 128/76 09/20/20 04:24 Pulse Ox 97 09/20/20 04:24 Intake & Output 09/19/20 09/20/20 09/20/20 18:59 06:59 18:59 Weight 68.039 kg Laboratory Last Values WBC 6.8 k/uL (3.8-10.6) 09/20/20 06:59 RBC 4.77 m/uL (3.80-5.40) 09/20/20 06:59 Hgb 13.9 gm/dL (11.4-16.0) 09/20/20 06:59 Hct 42.2 % (34.0-46.0) 09/20/20 06:59 MCV 88.5 fL (80.0-100.0) 09/20/20 06:59 MCH 29.1 pg (25.0-35.0) 09/20/20 06:59 MCHC 32.9 g/dL (31.0-37.0) 09/20/20 06:59 RDW 14.8 % (11.5-15.5) 09/20/20 06:59 Plt Count 233 k/uL (150-450) 09/20/20 06:59 MPV 8.1 09/20/20 06:59 Neutrophils % 56 % 09/20/20 06:59 Lymphocytes % 32 % 09/20/20 06:59 Monocytes % 8 % 09/20/20 06:59 Eosinophils % 1 % 09/20/20 06:59 Basophils % 0 % 09/20/20 06:59 Neutrophils # 3.9 k/uL (1.3-7.7) 09/20/20 06:59 Lymphocytes # 2.2 k/uL (1.0-4.8) 09/20/20 06:59 Monocytes # 0.5 k/uL (0-1.0) 09/20/20 06:59 Eosinophils # 0.1 k/uL (0-0.7) 09/20/20 06:59 Basophils # 0.0 k/uL (0-0.2) 09/20/20 06:59 Sodium 140 mmol/L (137-145) 09/20/20 06:59 Potassium 4.2 mmol/L (3.5-5.1) 09/20/20 06:59 Chloride 106 mmol/L (98-107) 09/20/20 06:59 Carbon Dioxide 26 mmol/L (22-30) 09/20/20 06:59 Anion Gap 8 mmol/L 09/20/20 06:59 BUN 12 mg/dL (7-17) 09/20/20 06:59 Creatinine 0.93 mg/dL (0.52-1.04) 09/20/20 06:59 Est GFR (CKD-EPI)AfAm >90 (>60 ml/min/1.73 sqM) 09/20/20 06:59 Est GFR (CKD-EPI)NonAf 85 (>60 ml/min/1.73 sqM) 09/20/20 06:59 Glucose 95 mg/dL (74-99) 09/20/20 06:59 Calcium 9.5 mg/dL (8.4-10.2) 09/20/20 06:59 Total Bilirubin 0.5 mg/dL (0.2-1.3) 09/20/20 06:59 AST 32 U/L (14-36) 09/20/20 06:59 ALT 29 U/L (4-34) 09/20/20 06:59 Alkaline Phosphatase 56 U/L (38-126) 09/20/20 06:59 Total Protein 8.2 g/dL (6.3-8.2) 09/20/20 06:59 Albumin 4.4 g/dL (3.5-5.0) 09/20/20 06:59 TSH 2.750 mIU/L (0.465-4.680) 09/20/20 06:59 Urine Color Yellow 09/19/20 09:23 Urine Appearance Clear (Clear) 09/19/20 09:23 Urine pH 8.5 (5.0-8.0) H 09/19/20 09:23 Ur Specific [place] 1.030 (1.001-1.035) 09/19/20 09:23 Urine Protein 1+ (Negative) H 09/19/20 09:23 Urine Glucose (UA) Negative (Negative) 09/19/20 09:23 Urine Ketones Negative (Negative) 09/19/20 09: Urine Blood Negative (Negative) 09/19/20 09:23 Urine Nitrite Negative (Negative) 09/19/20 09:23 Urine Bilirubin Negative (Negative) 09/19/20 09: Urine Urobilinogen <2.0 mg/dL (<2.0) 09/19/20 09:23 Ur Leukocyte Esterase Negative (Negative) 09/19/20: Urine RBC 1 /hpf (0-5) 09/19/20: Urine WBC <1 /hpf (0-5) 09/19/20: Ur Squamous Epith Cells 12 /hpf (0-4) H 09/19/20:23 Urine Mucus Few /hpf (None) H 09/19/20 09:23 Urine HCG, Qual Not Detected (Not Detectd) 09/19/20 09:23 Urine Opiates Screen Not Detected (NotDetected) 09/19/20 09:23 Ur Oxycodone Screen Not Detected (NotDetected) 09/19/20 09:23 Urine Methadone Screen Not Detected (NotDetected) 09/19/20 09:23 Ur Propoxyphene Screen Not Detected (NotDetected) 09/19/20 09:23 Ur Barbiturates Screen Not Detected (NotDetected) 09/19/20 09:23 U Tricyclic Antidepress Not Detected (NotDetected) 09/19/20 09:23 Ur Phencyclidine Scrn Not Detected (NotDetected) 09/19/20 09:23 Ur Amphetamines Screen Not Detected (NotDetected) 09/19/20 09:23 U Methamphetamines Scrn Not Detected (NotDetected) 09/19/20 09:23 U Benzodiazepines Scrn Not Detected (NotDetected) 09/19/20 09:23 Urine Cocaine Screen Not Detected (NotDetected) 09/19/20 09:23 U Marijuana (THC) Screen Detected (NotDetected) H 09/19/20 09:23 Coronavirus (PCR) Not Detected (Not Detectd) 09/19/20 10:45 09/20/20 09:55 IDENTIFYING DATA: Patient is a 30-year-old female who is currently lives in an apartment and 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 HPI: Patient presented to the hospital yesterday as she apparently called the police as she believed that someone was stalking her. According to ER report she claimed that the stalker may have been her however she found it quite "odd". She also claimed in the ER that she had stopped taking her Abilify as she believed it was ineffective for her. Patient was seen today on the mental health unit and was agreeable to speak to feature writer. She was attempting to cooperate however appeared to be tearful, shaking at times and appeared to be fairly anxious. She claims that she has been dealing with her PTSD and bipolar for quite some time now and states that it has gradually been getting worse. She states that she was feeling "scared and paranoid" and spoke about a potential stalker. She states that the paranoia has gotten better since yesterday and being on the unit and she claimed that she feels a bit safer today. She states that she has been noncompliant with her Abilify since her previous discharge in January 2020 and claims that she has not been taking it. She states that she was having racing thoughts and has been in a "manic phase for a while" however states that she does not know how long this is lasted for. She states that she has had poor sleep for the past 2 weeks. She spoke about her last admission and her relationship with her and how she almost attempted suicide last time by going to jump out of a window. She was tearful when mentioning the story. She claims that today she continues to have racing thoughts and feels that her mood is labile. Patient denies any suicidal or homicidal ideations intent or plan. At this time patient denies any auditory or visual hallucinations. Patient admits to using CBD however claims that she does not smoke marijuana. She denies any other recreational drug use or cigarettes. PAST PSYCHIATRIC HISTORY: Patient states that she has a history of PTSD and bipolar disorder. She was previously on Abilify 2 mg daily however discontinued it on her own. Patient has had 2 other psychiatric admissions to mental unit and her previous one was in January 2020. She claims that she has a therapist that she sees regularly at [facility]. She denies having any outpatient psychiatrist. She states that she has had "several" suicide attempts in the past. PMH:denies ALLERGIES: as per EMR CHEMICAL DEPENDENCY HISTORY: as per HPI FAMILY PSYCHIATRIC/SUBSTANCE USE HISTORY: She states that she has several family members with bipolar disorder including her mother. SOCIAL HISTORY: Patient was born and raised in [place] [facility] and claims that now she lives with her in an apartment and works doing communications and marketing. She also claims that she currently attends [employer] for general studies. She denies any legal history. MENTAL STATUS EXAM: General Appearance: Patient appears to be stated age is alert, directable, and attempts to cooperate. appears to be fairly anxious and nervous today. Patient appears to have poor hygiene and grooming. Behavior: Patient is seated without any agitated behavior anxious however attempts to cooperate. Speech: Patient's speech is fluent however is hesitant and shaky. Mood/Affect: Patient reports their mood is "up and down", affect is congruent and tearful Suicidality/Homicidality: Patient denies having any homicidal ideation intent or plan. Denies any suicidal ideations intent or plan Perceptions: Patient denies any visual hallucinations and denies any auditory hallucinations Though content/process: Patient has racing thoughts, is tangential at times. Logical. Memory and concentration: AOX3, grossly intact for the purposes of this session. Can spell "WORLD" backwards Judgment and insight: fair STRENGTHS/WEAKNESSES: strength is that patient is resilient. Weakness is that patient is impulsive and has chronic mental illness INTELLECT: average IMPRESSIONS: Bipolar disorder, current episode mixed features History of PTSD PLAN: -Patient is admitted under voluntary status to MHU for stabilization of psychiatric symptoms and safety. Patient has signed adult voluntary form and medication consent and is placed in patient's chart. -Medications : Will start patient on lithium 300 mg twice a day for mood stabilization. Patient will also be started on melatonin 5 mg daily at bedtime for insomnia. Trazodone 50 mg daily at bedtime when necessary for insomnia. -Ativan and Haldol PRN for agitation/aggression -Patient was informed of the risks, benefits and side effects of the medication and patient verbally consented to taking the medications. Patient signed med consent form and was placed in chart. -Internal Medicine consult to perform medical evaluation and physical. -NRT - not needed as patient does not smoke -SW on board for discharge planning. Encourage patient to participate in groups to work on coping skills.
[2020-09-20] MEDS: LITHIUM CARBONATE 300 MG CAP PO SCH ×2 (10:10→21:29)
[2020-09-20] MEDS: MELATONIN 5 MG TABLET PO SCH (21:29)
[2020-09-21] MEDS: LITHIUM CARBONATE 300 MG CAP PO SCH ×2 (08:14→19:58)
[2020-09-21] MEDS ORDERED: busPIRone HCl 10 MG TAB PO PRN (10:05)
--- NOTE | 2020-09-21 10:17 | P.PN ---
Progress Note - Text Progress Note Date: 09/21/20 Interval History: Patient was seen [wandering the hallways] and was directable and agreeable to speak with health science writer in the office. Today patient appears to have mild improvement in her hygiene and grooming. She appears to be mildly less anxious however continues to ramble at times was tangential. She was minimizing her symptoms today and was fairly superficial with health science writer initially. She states that she wanted to speak with the patient's right advocate about the court process and also wanting to go home and be discharged from the hospital. She claims that her mood is a "7 out of 10" and states that she is not depressed any longer today. She states that lithium has been helping her is agreeable to continue on with this medication. She states that she has been a "introvert" on the unit and has been minimally participating in groups. She continues to have superficial insight. At this time patient denies any suicidal or homical ideations, intent or plan. Patient denies any auditory, visual hallucinations and denies any paranoia or delusions. Patient denies any side effects from the medications and has been compliant with meds. Mental Status Exam: General Appearance: Patient appears to be stated age is alert, directable, and superficially cooperative. appears to be mildly less anxious. Patient appears to have improving hygiene and grooming. Behavior: Patient is seated without any agitated behavior. Anxious. Speech: Patient's speech is fluent Mood/Affect: Patient reports their mood is "7 out of 10", affect is congruent. Not tearful today. Suicidality/Homicidality: Patient denies having any homicidal ideation intent or plan. Denies any suicidal ideations intent or plan Perceptions: Patient denies any visual hallucinations and denies any auditory hallucinations Though content/process: Patient has racing thoughts, is tangential at times. Logical. Minimizing her hospitalization in her condition. Memory and concentration: AOX3, grossly intact for the purposes of this session Judgment and insight: Superficial Assessment Bipolar disorder, current episode mixed features History of PTSD Plan: -Patient continues to meet criteria for inpatient psychiatric admission for symptom stabilization and safety. Patient has signed [adult voluntary form and] medication consent and was placed in patient's chart. -Medications: Continue lithium 300 mg twice a day for mood stabilization. Continue with melatonin 5 mg daily at bedtime for insomnia. Trazodone 50 mg nightly when necessary for insomnia. I added BuSpar 10 mg 3 times a day when necessary for anxiety and discontinued Ativan. -When necessary Ativan and Haldol IM for agitation/aggression. -NRT - not needed as patient does not smoke -SW on board for discharge planning. Encouraged the patient to participate in milieu. automobile body worker to get further collateral information from patient's and ensure safety and ensure that any guns and weapons have been removed from the house. Likely prepare for discharge in 1-2 days.
[2020-09-21] MEDS: MELATONIN 5 MG TABLET PO SCH (19:58)
[2020-09-22 05:08] VITALS: BP 123/77; PULSE 70; RESP 18; TEMP 97.6
[2020-09-22] MEDS: LITHIUM CARBONATE 300 MG CAP PO SCH (08:23)
--- NOTE | 2020-09-22 09:16 | P.DS ---
Providers Date of admission: 09/19/20 12:42 Expected date of discharge: 09/22/20 Attending physician: Luca Zhang MD Consults: 09/19/20 13:47 Consult Physician Routine Consulting Provider: [facility] Consult Reason/Comments: follow up H & P Do you want consulting provider notified?: Yes Primary care physician: Zulma Garcia - Discharge Diagnosis(es) (1) Bipolar disorder, current episode mixed Current Visit: Yes Status: Acute Priority: High (2) History of posttraumatic stress disorder (PTSD) Current Visit: Yes Status: Acute Priority: Medium Hospital Course: Admission HPI: Admission note was completed by typewriters functional tester "Patient is a 30-year-old female who is currently lives in an apartment and 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 Patient presented to the hospital yesterday as she apparently called the police as she believed that someone was stalking her. According to ER report she claimed that the stalker may have been her however she found it quite "odd". She also claimed in the ER that she had stopped taking her Abilify as she believed it was ineffective for her. Patient was seen today on the mental health unit and was agreeable to speak to typewriters functional tester. She was attempting to cooperate however appeared to be tearful, shaking at times and appeared to be fairly anxious. She claims that she has been dealing with her PTSD and bipolar for quite some time now and states that it has gradually been getting worse. She states that she was feeling "scared and paranoid" and spoke about a potential stalker. She states that the paranoia has gotten better since yesterday and being on the unit and she claimed that she feels a bit safer today. She states that she has been noncompliant with her Abilify since her previous discharge in January 2020 and claims that she has not been taking it. She states that she was having racing thoughts and has been in a "manic phase for a while" however states that she does not know how long this is lasted for. She states that she has had poor sleep for the past 2 weeks. She spoke about her last admission and her relationship with her and how she almost attempted suicide last time by going to jump out of a window. She was tearful when mentioning the story. She claims that today she continues to have racing thoughts and feels that her mood is labile. Patient denies any suicidal or homicidal ideations intent or plan. At this time patient denies any auditory or visual hallucinations. Patient admits to using CBD however claims that she does not smoke marijuana. She denies any other recreational drug use or cigarettes." Hospital course: Upon admission to the unit patient was initially depressed, labile and tearful. Patient was however directable and agreeable to commence treatment and signed adult voluntary form. Patient got along well with other patients on the unit and followed unit protocol. Patient was compliant with the medications and denied any side effects throughout hospital course. Patient was started on lithium 300 mg twice a day for mood stabilization. Patient was also started on melatonin 5 mg daily at bedtime for insomnia. Patient did complain of anxiety on and off during the hospitalization and did take an Ativan however patient was prescribed BuSpar when necessary however did not take any of the medications for her anxiety. Patient spoke of her stressors and engaged in therapy both group and individual. Patient was also seen by medical team for history and physical exam. Throughout the course of the hospitalization patient gradually improved with regards to mood lability, anxiety, sleep and became more future oriented with improved insight and judgment. On the day of discharge patient denied any suicidal or homicidal ideations intent or plan denied any auditory or visual hallucinations. Patient endorsed wanting to live for her future and her health. The patient denied any access to guns or weapons. Patient denied any paranoia and did not endorse any delusions. Patient does not have a significant history of substance abuse however was counseled on abstaining from all substances inclu ding alcohol and marijuana. Patient was also counseled on the medications and need for regular compliance and was encouraged to follow-up with their outpatient appointment for mental health and also for primary care. Prior to discharge a family meeting will be arranged by social secretary to speak with patient's whom she lives with and answer any questions and ensure safety upon discharge. Mental status exam: General Appearance: Patient appears to be stated age is alert, pleasant, and cooperative. Patient is in no acute distress and has improved hygiene and grooming Behavior: Patient is calmly seated without any agitated behavior. Speech: Patient's speech is fluent and nonpressured. Mood/Affect: Patient reports their mood is "good", affect is congruent and euthymic. Suicidality/Homicidality: Patient denies having any suicidal or homicidal ideation intent or plan. Perceptions: Patient denies any auditory or visual hallucinations. Though content/process: There is no evidence of any delusional thought content and thought process is linear and goal-directed. more future oriented Memory and concentration: AOX3, grossly intact for the purposes of this session. Can spell "WORLD" backwards correctly. Judgment and insight: improved with guarded prognosis Impression: Bipolar disorder, current episode mixed History of PTSD Plan: -Continue with discharge today as patient has improved and stabilized psychiatrically and is not currently an imminent threat to herself and/or others. -Continue medications: Boyd 300 mg twice a day for mood stabilization, melatonin 5 mg daily at bedtime for insomnia. -Patient was counseled on the need for medication compliance and appropriate follow-up at mental health and also primary care for medical issues. Patient verbalized understanding and agreed. -Social work to arrange for and conduct family meeting to ensure safety upon discharge and answer any questions/concerns. Social work also to arrange for patients follow up appointments for psychiatric care along with follow up with primary care provider. Patient was also encouraged to continue on with her outpatient therapist who she follows up with regularly for individual therapy. -Patient counseled on abstaining from recreational drugs and marijuana and alcohol. Was informed/educated on the adverse effects on their physical and mental health. Patient verbally agreed and understood. -Patient was instructed to return to the hospital or seek immediate medical care if their psychiatric or medical symptoms do worsen or reoccur. Allergies Allergy/AdvReac Type Severity Reaction Status Date / Time aripiprazole [From Abilify] AdvReac Nausea Verified 09/19/20 16:08 Laboratory Results WBC 6.8 k/uL (3.8-10.6) 09/20/20 06:59 RBC 4.77 m/uL (3.80-5.40) 09/20/20 06:59 Hgb 13.9 gm/dL (11.4-16.0) 09/20/20 06:59 Hct 42.2 % (34.0-46.0) 09/20/20 06:59 MCV 88.5 fL (80.0-100.0) 09/20/20 06:59 MCH 29.1 pg (25.0-35.0) 09/20/20 06:59 MCHC 32.9 g/dL (31.0-37.0) 09/20/20 06:59 RDW 14.8 % (11.5-15.5) 09/20/20 06:59 Plt Count 233 k/uL (150-450) 09/20/20 06:59 MPV 8.1 09/20/20 06:59 Neutrophils % 56 % 09/20/20 06:59 Lymphocytes % 32 % 09/20/20 06:59 Monocytes % 8 % 09/20/20 06:59 Eosinophils % 1 % 09/20/20 06:59 Basophils % 0 % 09/20/20 06:59 Neutrophils # 3.9 k/uL (1.3-7.7) 09/20/20 06:59 Lymphocytes # 2.2 k/uL (1.0-4.8) 09/20/20 06:59 Monocytes # 0.5 k/uL (0-1.0) 09/20/20 06:59 Eosinophils # 0.1 k/uL (0-0.7) 09/20/20 06:59 Basophils # 0.0 k/uL (0-0.2) 09/20/20 06:59 Sodium 140 mmol/L (137-145) 09/20/20 06:59 Potassium 4.2 mmol/L (3.5-5.1) 09/20/20 06:59 Chloride 106 mmol/L (98-107) 09/20/20 06:59 Carbon Dioxide 26 mmol/L (22-30) 09/20/20 06:59 Anion Gap 8 mmol/L 09/20/20 06:59 BUN 12 mg/dL (7-17) 09/20/20 06:59 Creatinine 0.93 mg/dL (0.52-1.04) 09/20/20 06:59 Est GFR (CKD-EPI)AfAm >90 (>60 ml/min/1.73 sqM) 09/20/20 06:59 Est GFR (CKD-EPI)NonAf 85 (>60 ml/min/1.73 sqM) 09/20/20 06:59 Glucose 95 mg/dL (74-99) 09/20/20 06:59 Calcium 9.5 mg/dL (8.4-10.2) 09/20/20 06:59 Total Bilirubin 0.5 mg/dL (0.2-1.3) 09/20/20 06:59 AST 32 U/L (14-36) 09/20/20 06:59 ALT 29 U/L (4-34) 09/20/20 06:59 Alkaline Phosphatase 56 U/L (38-126) 09/20/20 06:59 Total Protein 8.2 g/dL (6.3-8.2) 09/20/20 06:59 Albumin 4.4 g/dL (3.5-5.0) 09/20/20 06:59 TSH 2.750 mIU/L (0.465-4.680) 09/20/20 06:59 Urine Color Yellow 09/19/20 09:23 Urine Appearance Clear (Clear) 09/19/20 09:23 Urine pH 8.5 (5.0-8.0) H 09/19/20 09:23 Ur Specific [place] 1.030 (1.001-1.035) 09/19/20 09:23 Urine Protein 1+ (Negative) H 09/19/20 09:23 Urine Glucose (UA) Negative (Negative) 09/19/20 09:23 Urine Ketones Negative (Negative) 09/19/20 09:23 Urine Blood Negative (Negative) 09/19/20 09:23 Urine Nitrite Negative (Negative) 09/19/20 09:23 Urine Bilirubin Negative (Negative) 09/19/20 09:23 Urine Urobilinogen <2.0 mg/dL (<2.0) 09/19/20 09:23 Ur Leukocyte Esterase Negative (Negative) 09/19/20 09:23 Urine RBC 1 /hpf (0-5) 09/19/20 09:23 Urine WBC <1 /hpf (0-5) 09/19/20 09:23 Ur Squamous Epith Cells 12 /hpf (0-4) H 09/19/20 09:23 Urine Mucus Few /hpf (None) H 09/19/20 09:23 Urine HCG, Qual Not Detected (Not Detectd) 09/19/20 09:23 Urine Opiates Screen Not Detected (NotDetected) 09/19/20 09:23 Ur Oxycodone Screen Not Detected (NotDetected) 09/19/20 09:23 Urine Methadone Screen Not Detected (NotDetected) 09/19/20 09:23 Ur Propoxyphene Screen Not Detected (NotDetected) 09/19/20 09:23 Ur Barbiturates Screen Not Detected (NotDetected) 09/19/20 09:23 U Tricyclic Antidepress Not Detected (NotDetected) 09/19/20 09:23 Ur Phencyclidine Scrn Not Detected (NotDetected) 09/19/20 09:23 Ur Amphetamines Screen Not Detected (NotDetected) 09/19/20 09:23 U Methamphetamines Scrn Not Detected (NotDetected) 09/19/20 09:23 U Benzodiazepines Scrn Not Detected (NotDetected) 09/19/20 09:23 Urine Cocaine Screen Not Detected (NotDetected) 09/19/20 09:23 U Marijuana (THC) Screen Detected (NotDetected) H 09/19/20 09:23 Coronavirus (PCR) Not Detected (Not Detectd) 09/19/20 10:45 Vital Signs Temp 97.6 F 09/22/20 03:31 Pulse 70 09/22/20 03:31 Resp 18 09/22/20 03:31 BP 123/77 09/22/20 03:31 Pulse Ox 97 09/20/20 04:24 Patient Condition at Discharge: Stable Plan - Discharge Summary New Discharge Prescriptions: New Boyd Carbonate 300 mg PO BID 30 Days cap Melatonin 5 mg PO HS 30 Days tablet Continue [place]-3 Fatty Acids/Fish Oil [Fish Oil 1,000 mg Softgel] 1 cap PO DAILY Discontinued Ashwagandha Root Extract 300 mg PO DAILY Focus Factor 4 cap PO DAILY ARIPiprazole [Abilify] 2 mg PO DAILY Discharge Medication List [place]-3 Fatty Acids/Fish Oil [Fish Oil 1,000 mg Softgel] 1 cap PO DAILY 09/19/20 [History] Boyd Carbonate 300 mg PO BID 30 Days cap 09/22/20 [Rx] Melatonin 5 mg PO HS 30 Days tablet 09/22/20 [Rx] Follow up Appointment(s)/Referral(s): Colonj[facility] [Outside] - 09/22/20 2:30 pm (09/22/20 at 230 pm with Zulma Lino MD [Primary Care Provider] - 1-2 days Activity/Diet/Wound Care/Special Instructions: Activity and diet as tolerated. Avoid the use of street drugs and alcohol. Take all medications as prescribed. When you are in need of refills on your medications please contact your medical provider and/or outpatient psychiatrist to have this done. Please go to scheduled outpatient appointment for aftercare treatment. If symptoms return or become worse, call the crisis line at and/or go to the nearest emergency room for evaluation. Discharge Disposition: HOME SELF-CARE
== END 2020-09-22 10:55 | disposition home or self-care (01) | DRG 885 ==
LOC: EC 08:58 → 3MHU 12:42
PROVIDERS: ADMIT Psychiatry & Neurology Psychiatry; ATTEND Psychiatry & Neurology Psychiatry
DX: F31.60 Bipolar disorder, current episode mixed, unspecified (principal); F20.9 Schizophrenia, unspecified; F43.10 Post-traumatic stress disorder, unspecified; G47.00 Insomnia, unspecified; Z79.899 Other long term (current) drug therapy; Z81.8 Family history of other mental and behavioral disorders; Z91.19 Patient's noncompliance with other medical treatment and regimen; Z91.5 Personal history of self-harm; Z20.822 Contact with and (suspected) exposure to COVID-19
CPT/HCPCS: 80053; 80306; 81001; 81025; 82075; 84443; 85025; 87635; 99285

== ENCOUNTER 2021-02-10 22:38 | Emergency (ER) | payer OTHER ==
[2021-02-10 22:45] VITALS: RESP 16; TEMP 99.3
[2021-02-10 23:51] LABS: Appearance,Urine Clear (Clear); Bilirubin,Urine Negative (Negative); Blood,Urine Negative (Negative); Color,Urine Yellow; Glucose,Urine (UA) Negative (Negative); Ketones,Urine Negative (Negative); Leukocyte Esterase,Urine Negative (Negative); Nitrite,Urine Negative (Negative); PH, Urine 6.5 (5.0-8.0); Protein,Urine Negative (Negative); Urobilinogen,Urine <2.0 mg/dL (<2.0)
--- NOTE | 2021-02-10 23:57 | XR ---
EXAMINATION TYPE: XR ribs LT w pa chest xray DATE OF EXAM: 02/10/2021 COMPARISON: NONE HISTORY: Chest pain TECHNIQUE: 5 views FINDINGS: Heart and mediastinum are normal. Lungs are clear. Diaphragm is normal. Bony thorax is inta ct. The left ribs are intact. There are chest leads. IMPRESSION: Normal chest. Normal left ribs.
[2021-02-11] MEDS ORDERED: KETOROLAC 15 MG/ML 1 ML VIAL IM STA (00:15)
--- NOTE | 2021-02-11 00:57 | ED ---
General Adult HPI - General Chief complaint: Chest Pain Stated complaint: Lt Flank Pain Time Seen by Provider: 02/10/21 22:59 Source: patient Mode of arrival: ambulatory Limitations: no limitations - History of Present Illness Initial comments: 31-year-old female patient presents to the emergency department today for evaluation of left lateral chest wall pain. Patient states that pain started about 3 hours ago. States she was doing nothing when the pain started. Denies any shortness of breath or cough. States pain does worsen with movement. Osiel es history of similar type pain. Denies any hematuria, dysuria, urinary frequency, urinary urgency. States she is otherwise healthy takes no medications. Denies smoking. - Related Data Home Medications Medication Instructions Recorded Confirmed [place]-3 Fatty Acids/Fish Oil [Fish 1 cap PO DAILY 09/19/20 09/19/20 Oil 1,000 mg Softgel] Previous Rx's Medication Instructions Recorded [place] Carbonate 300 mg PO BID 30 Days cap 09/22/20 Melatonin 5 mg PO HS 30 Days tablet 09/22/20 Ibuprofen [Motrin] 600 mg PO Q8HR PRN #30 tab 02/11/21 Allergies Allergy/AdvReac Type Severity Reaction Status Date / Time aripiprazole [From Abilify] AdvReac Nausea Verified 02/10/21 22:45 Review of Systems ROS Statement: Those systems with pertinent positive or pertinent negative responses have been documented in the HPI. ROS Other: All systems not noted in ROS Statement are negative. Past Medical History Past Medical History: No Reported History History of Any Multi-Drug Resistant Organisms: None Reported Past Surgical History: No Surgical Hx Reported Past Anesthesia/Blood Transfusion Reactions: No Reported Reaction Past Psychological History: Anxiety, Bipolar, Schizophrenia Smoking Status: Never smoker Past Alcohol Use History: None Reported Past Drug Use History: None Reported General Exam Limitations: no limitations General appearance: alert, in no apparent distress Eye exam: Present: normal appearance, PERRL, EOMI. Absent: scleral icterus, conjunctival injection, periorbital swelling ENT exam: Present: normal exam, normal oropharynx, mucous membranes moist Respiratory exam: Present: normal lung sounds bilaterally, chest wall tenderness (Left lateral over ribs 3 and 4). Absent: respiratory distress, wheezes, rales, rhonchi, stridor Cardiovascular Exam: Present: regular rate, normal rhythm, normal heart sounds. Absent: systolic murmur, diastolic murmur, rubs, gallop, clicks GI/Abdominal exam: Present: soft, normal bowel sounds. Absent: distended, tenderness, guarding, rebound, rigid Back exam: Present: normal inspection. Absent: CVA tenderness (R), CVA tenderness (L) Neurological exam: Present: alert, oriented X3, CN II-XII intact Psychiatric exam: Present: normal affect, normal mood Skin exam: Present: warm, dry, intact, normal color. Absent: rash Course Vital Signs 02/10/21 02/11/21 22:41 00:30 Temperature 99.3 F Pulse Rate 82 80 Respiratory 16 16 Rate Blood Pressure 157/80 123/68 O2 Sat by Pulse 98 98 Oximetry EKG Findings - EKG Comments: EKG Findings:: EKG obtained at 2251 shows normal sinus rhythm with a ventricular rate of 89, MO interval 112, QRS duration 84, QT 368, QTC 447. No evidence of ST elevation or depression. Medical Decision Making - Medical Decision Making 31-year-old female patient presents to the emergency department today for evaluation of left lateral chest wall tenderness and pain. Physical examination is unremarkable. Lung sounds are clear to auscultation. EKG showed normal sinus rhythm. Urinalysis was negative. Did discuss findings and results with her. States she is feeling better after receiving anti-inflammatory medication. She'll be discharged with prescription for ibuprofen. She is instructed to follow-up with her primary care physician for recheck in 1-2 days. Return parameters discussed in detail. She verbalizes understanding and agrees this plan. My attending is Dr. Barnes. - Lab Data Lab Results 02/10/21 02/10/21 Range/Units 23:34 23:34 Urine Color Yellow Urine Appearance Clear (Clear) Urine pH 6.5 (5.0-8.0) Ur Specific [place] 1.020 (1.001-1.035) Urine Protein Negative (Negative) Urine Glucose (UA) Negative (Negative) Urine Ketones Negative (Negative) Urine Blood Negative (Negative) Urine Nitrite Negative (Negative) Urine Bilirubin Negative (Negative) Urine Urobilinogen <2.0 (<2.0) mg/dL Ur Leukocyte Esterase Negative (Negative) Urine HCG, Qual Not Detected (Not Detectd) - Radiology Data Radiology results: report reviewed, image reviewed Disposition Clinical Impression: Rib pain on left side Disposition: HOME SELF-CARE Condition: Good Instructions (If sedation given, give patient instructions): Costochondritis (ED) Additional Instructions: Take medications as directed. Apply ice to the area. Follow-up through primary care physician for recheck in 1-2 days. Return to the emergency department for any new, worsening, or concerning symptoms. Prescriptions: Ibuprofen [Motrin] 600 mg PO Q8HR PRN #30 tab PRN Reason: Pain Is patient prescribed a controlled substance at d/c from ED?: No Referrals: Kody Saunders DO [Primary Care Provider] - 1-2 days Time of Disposition: 00:56
[2021-02-11 01:09] VITALS: BP 123/68; PULSE 80
== END 2021-02-11 01:00 | disposition home or self-care (01) ==
LOC: SUPCPDRO 22:38 → EC 22:38
DX: R07.81 Pleurodynia (principal)
CPT/HCPCS: 81003; 81025; 71101; 99285; 96372; J1885

== ENCOUNTER 2021-02-12 03:07 | Emergency (ER) | payer OTHER ==
[2021-02-12 03:14] VITALS: RESP 18; TEMP 98.3
--- NOTE | 2021-02-12 03:52 | ED ---
Chest Pain HPI - General Chief Complaint: Chest Pain Stated Complaint: Chest Pain Time Seen by Provider: 02/12/21 03:15 Source: patient Mode of arrival: ambulatory Limitations: no limitations - History of Present Illness Initial Comments: This patient is 31-year-old woman who presents to have reevaluation of pain in the left side of her chest. It had come on the day previous and she was seen here having x-rays that were negative. She initially noticed it while walking dog. She states that it does seem to limit her activity. She notices sometimes with movement sometimes with deep breath. The patient did have covid vaccination the week before that, but she felt she was starting to get over the symptoms that that had brought on. Patient denies fever or chills. No productive cough. No dyspnea. No leg pain or swelling. MD Complaint: chest pain Onset/Timin -: hour(s) Onset: during exertion Pain Location: left chest Pain Radiation: none Severity: moderate Quality: sharp Consistency: intermittent Improves With: nothing Worsens With: exertion, inspiration Treatments Prior to Arrival: none - Related Data Home Medications Medication Instructions Recorded Confirmed [place]-3 Fatty Acids/Fish Oil [Fish 1 cap PO DAILY 09/19/20 09/19/20 Oil 1,000 mg Softgel] Previous Rx's Medication Instructions Recorded [place] Carbonate 300 mg PO BID 30 Days cap 09/22/20 Melatonin 5 mg PO HS 30 Days tablet 09/22/20 Ibuprofen [Motrin] 600 mg PO Q8HR PRN #30 tab 02/11/21 Allergies Allergy/AdvReac Type Severity Reaction Status Date / Time aripiprazole [From Abilify] AdvReac Nausea Verified 02/12/21 03:14 Review of Systems ROS Statement: Those systems with pertinent positive or pertinent negative responses have been documented in the HPI. ROS Other: All systems not noted in ROS Statement are negative. Constitutional: Denies: fever, chills Respiratory: Denies: cough, dyspnea Cardiovascular: Reports: as per HPI, chest pain. Denies: palpitations, edema Gastrointestinal: Denies: abdominal pain, vomiting, diarrhea Genitourinary: Denies: dysuria, frequency, hematuria, abnormal menses Musculoskeletal: Denies: back pain Skin: Denies: rash Neurological: Denies: headache, weakness, numbness EKG Findings - EKG Results: EKG: interpreted by ERMD, WNL, sinus rhythm (Rate 71 bpm), normal axis, normal QRS, normal ST/T, no acute changes Past Medical History Past Medical History: No Reported History History of Any Multi-Drug Resistant Organisms: None Reported Past Surgical History: No Surgical Hx Reported Past Anesthesia/Blood Transfusion Reactions: No Reported Reaction Past Psychological History: Anxiety, Bipolar, Schizophrenia Smoking Status: Never smoker Past Alcohol Use History: None Reported Past Drug Use History: None Reported General Exam Limitations: no limitations General appearance: alert, in no apparent distress Head exam: Present: atraumatic, normocephalic Eye exam: Present: normal appearance. Absent: scleral icterus, conjunctival injection Respiratory exam: Present: normal lung sounds bilaterally. Absent: respiratory distress, wheezes, rales, rhonchi, stridor, chest wall tenderness, accessory muscle use Cardiovascular Exam: Present: regular rate, normal rhythm, normal heart sounds. Absent: systolic murmur, diastolic murmur, rubs, gallop GI/Abdominal exam: Present: soft. Absent: distended, tenderness, guarding, rebound, rigid, mass Extremities exam: Present: normal inspection, normal capillary refill. Absent: pedal edema, calf tenderness Back exam: Absent: CVA tenderness (R), CVA tenderness (L) Neurological exam: Present: alert Skin exam: Present: warm, dry, intact, normal color. Absent: rash Course Vital Signs 02/12/21 03:10 Temperature 98.3 F Pulse Rate 91 Respiratory 18 Rate Blood Pressure 140/79 O2 Sat by Pulse 98 Oximetry Disposition Clinical Impression: Pleuritis Disposition: HOME SELF-CARE Condition: Good Instructions (If sedation given, give patient instructions): Pleurisy (ED) Is patient prescribed a controlled substance at d/c from ED?: No Referrals: Kody Saunders DO [Primary Care Provider] - 1-2 days
[2021-02-12 04:55] LABS: Basophils # (A) 0.1 k/uL (0-0.2); Basophils % (A) 1 %; Eosinophils # (A) 0.1 k/uL (0-0.7); Eosinophils % (A) 1 %; HCT 39.7 % (34.0-46.0); HGB 13.2 gm/dL (11.4-16.0); Lymphocytes % (A) 45 %; MCH 28.5 pg (25.0-35.0); MCHC 33.3 g/dL (31.0-37.0); MCV 85.7 fL (80.0-100.0); Monocytes # (A) 0.5 k/uL (0-1.0); Monocytes % (A) 7 %; Neutrophils % (A) 44 %; Platelet Count 244 k/uL (150-450); RBC 4.63 m/uL (3.80-5.40); RDW 15.3 % (11.5-15.5); WBC 6.6 k/uL (3.8-10.6)
[2021-02-12 05:04] LABS: Albumin 4.1 g/dL (3.5-5.0); Calcium 9.2 mg/dL (8.4-10.2); Magnesium 2.1 mg/dL (1.6-2.3); Potassium 3.7 mmol/L (3.5-5.1); Total Bilirubin 0.2 mg/dL (0.2-1.3); Total Protein 7.5 g/dL (6.3-8.2)
--- NOTE | 2021-02-12 05:50 | XR ---
EXAM: XR Chest, 2 Views CLINICAL HISTORY: ITS.REASON XR Reason: chest pain TECHNIQUE: Frontal and lateral views of the chest. COMPARISON: No previous studies. FINDINGS: Lungs: The lungs are well aerated. Pleural space: Unremarkable. No pneumothorax. Heart: Cardiomediastinal silhouette unremarkable. Mediastinum: See above. Bones/joints: Osteopenia. Dextroscoliosis of the thoracic spine. IMPRESSION: 1. No active disease. 2. Osteopenia.
[2021-02-12 06:19] VITALS: BP 138/80; PULSE 88
== END 2021-02-12 06:19 | disposition home or self-care (01) ==
LOC: EC 03:07
DX: R09.1 Pleurisy (principal); Z88.8 Allergy status to other drugs, medicaments and biological substances
CPT/HCPCS: 36415; 71046; 80053; 81025; 83735; 84484; 85025; 85379; 93005; 99285

== ENCOUNTER 2021-02-24 23:33 | Emergency (ER) | payer OTHER ==
[2021-02-25 00:24] VITALS: RESP 18
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
[2021-02-25 00:53] LABS: Amphetamine Screen,Urine Detected (NotDetected); Barbiturate Screen,Urine Not Detected (NotDetected); Benzodiazepines Screen,Urine Not Detected (NotDetected); Cocaine Screen,Urine Not Detected (NotDetected); Methadone Screen, Urine Not Detected (NotDetected); Opiate Screen,Urine Not Detected (NotDetected); Oxycodone Screen, Urine Not Detected (NotDetected); Phencyclidine Screen,Urine Not Detected (NotDetected); Tricyclic Antidepressant,Urine Not Detected (NotDetected); Urn Cannabinoid Scrn Detected (NotDetected)
[2021-02-25 05:34] VITALS: BP 121/67; PULSE 79; TEMP 97.7
== END 2021-02-25 05:34 | disposition home or self-care (01) ==
LOC: EC 23:33
DX: F31.9 Bipolar disorder, unspecified (principal); F41.9 Anxiety disorder, unspecified; F20.9 Schizophrenia, unspecified; Z86.59 Personal history of other mental and behavioral disorders; Z88.8 Allergy status to other drugs, medicaments and biological substances
CPT/HCPCS: 80306; 82075; 99284

== ENCOUNTER 2021-02-28 13:31 | Inpatient (IN) | payer MEDICAID, OTHER ==
[2021-02-28] MEDS ORDERED: SODIUM CHLORIDE 0.9% 1,000 ML IV STA (14:52)
[2021-02-28 15:41] LABS: Basophils % (A) 1 %; Eosinophils % (A) 1 %; HCT 42.3 % (34.0-46.0); HGB 13.5 gm/dL (11.4-16.0); Lymphocytes # (A) 1.6 k/uL (1.0-4.8); Lymphocytes % (A) 37 %; MCV 87.4 fL (80.0-100.0); Mean Platelet Volume 8.6; Monocytes # (A) 0.2 k/uL (0-1.0); Monocytes % (A) 6 %; Neutrophils # (A) 2.2 k/uL (1.3-7.7); Neutrophils % (A) 53 %; Platelet Count 235 k/uL (150-450); RBC 4.84 m/uL (3.80-5.40); RDW 15.4 % (11.5-15.5); WBC 4.2 k/uL (3.8-10.6)
[2021-02-28 15:45] LABS: Appearance,Urine Clear (Clear); Bilirubin,Urine Negative (Negative); Blood,Urine Negative (Negative); Color,Urine Yellow; Glucose,Urine (UA) Negative (Negative); Ketones,Urine 1+ (Negative); Leukocyte Esterase,Urine Negative (Negative); Nitrite,Urine Negative (Negative); Protein,Urine Trace (Negative); Specific Gravity,Urine 1.023 (1.001-1.035); Urobilinogen,Urine <2.0 mg/dL (<2.0)
[2021-02-28 15:50] LABS: ALT 23 U/L (4-34); AST 34 U/L (14-36); African American GFR (CKD) >90 (>60 ml/min/1.73 sqM); Albumin 4.4 g/dL (3.5-5.0); Alkaline Phosphatase 70 U/L (38-126); Amylase 62 U/L (30-110); Anion Gap 9 mmol/L; Blood Urea Nitrogen 11 mg/dL (7-17); Calcium 9.6 mg/dL (8.4-10.2); Carbon Dioxide 26 mmol/L (22-30); Chloride 103 mmol/L (98-107); Glucose 86 mg/dL (74-99); Lipase 76 U/L (23-300); Non-African American GFR(CKD) 88 (>60 ml/min/1.73 sqM); Potassium 4.5 mmol/L (3.5-5.1); Sodium 138 mmol/L (137-145); Total Bilirubin 0.3 mg/dL (0.2-1.3); Total Protein 7.9 g/dL (6.3-8.2)
--- NOTE | 2021-02-28 16:26 | XR ---
EXAMINATION TYPE: XR KUB DATE OF EXAM: 02/28/2021 COMPARISON: NONE HISTORY: Pain TECHNIQUE: Single supine KUB image of the abdomen is obtained FINDINGS: Small bowel demonstrates no evidence for dilatation or air fluid levels. Gas and fecal material is seen in non-distended colon. No convincing evidence for pneumoperitoneum. No unusual calcifications. The lung bases are clear. The osseous structures are intact. Necklace artifact IMPRESSION: 1. Overall nonobstructive bowel gas pattern.
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
[2021-02-28 18:20] LABS: Amphetamine Screen,Urine Detected (NotDetected); Barbiturate Screen,Urine Not Detected (NotDetected); Benzodiazepines Screen,Urine Not Detected (NotDetected); Cocaine Screen,Urine Not Detected (NotDetected); Methadone Screen, Urine Not Detected (NotDetected); Opiate Screen,Urine Not Detected (NotDetected); Oxycodone Screen, Urine Not Detected (NotDetected); Phencyclidine Screen,Urine Not Detected (NotDetected); Tricyclic Antidepressant,Urine Not Detected (NotDetected); Urn Cannabinoid Scrn Detected (NotDetected)
[2021-02-28] MEDS ORDERED: ACETAMINOPHEN TAB 325 MG TAB PO PRN (23:50)
[2021-02-28] MEDS ORDERED: MAG HYDROX/AL HYDROX/SIMETH 30 ML CUP PO PRN (23:50)
[2021-02-28] MEDS ORDERED: LORazepam 1 MG TAB PO PRN (23:50)
[2021-02-28] MEDS ORDERED: HALOPERIDOL LACTATE 5 MG/ML 1 ML VIAL IM PRN (23:52)
[2021-02-28] MEDS ORDERED: LORazepam 2 MG/ML INJ IM PRN (23:52)
--- NOTE | 2021-03-01 03:24 | P.MDCNMH ---
History of Present Illness H&P Date: 03/01/21 Chief Complaint: Medical evaluation 41-year-old female denies any significant past medical history Patient has bizarre thought process she started talking about being poisoned and having pleurisy which the only way to treated despite juicing her food she has labile emotions where she bursts into tears and then laughs while she is talking her thought process is tangential jumps from one subject to another but currently denies any fevers chills or headache denies any nausea vomiting denies any GI bleeding diarrhea or urinary issues She does report some trouble breathing off and on 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 Patient is very unreliable historian at this time and it seems like her mental health component is affecting her thought process at this time Review of Systems ROS unobtainable: due to mental status Past Medical History Past Medical History: No Reported History History of Any Multi-Drug Resistant Organisms: None Reported Past Surgical History: No Surgical Hx Reported Past Anesthesia/Blood Transfusion Reactions: No Reported Reaction Smoking Status: Never smoker - Past Family History Family Family Medical History: No Reported History Medications and Allergies Home Medications Medication Instructions Recorded Confirmed Type Dextroamphetamine/Amphetamine 10 mg PO DAILY 02/28/21 03/01/21 History [Adderall Xr] Allergies Allergy/AdvReac Type Severity Reaction Status Date / Time aripiprazole [From Abilify] AdvReac Nausea Verified 03/01/21 00:30 Physical Exam Vitals: Vital Signs Temp Pulse Pulse Resp BP BP Pulse Ox 03/01/21 00:54 98.0 F 66 12 120/74 97 02/28/21 17:14 57 L 18 121/72 97 02/28/21 15:27 59 L 18 120/84 96 02/28/21 13:33 99.2 F 81 20 113/90 98 Intake and Output 02/28/21 02/28/21 03/01/21 14:59 22:59 06:59 Other: Weight 64.864 kg 63.957 kg Constitutional: No acute distress, cooperative Eyes: Anicteric sclerae, moist conjunctiva, Pupils equal round reactive to light ENMT: NC/AT Oropharynx clear, no erythema, or exudates Neck: Supple, FROM, no masses, or JVD No carotid bruits No thyromegaly Lungs: Clear to auscultation Clear to percussion Normal respiratory effort, no accessory muscle use Cardiovascular: Heart regular in rate and rhythm, No murmurs, gallops, or rubs No peripheral edema Abdominal: Soft Nontender, no guarding, rebound or rigidity Abdomen moving with respiration Normoactive bowel sounds No hepatomegaly, No splenomegaly No palpable mass No abdominal wall hernia noted Skin: Normal temperature, tone, texture, turgor There are multiple areas of patches of papules nonblanching with background of bruising over bilateral lower extremities she claims that these are bug bites that she had couple days ago she denies any itching there is no active bleeding or drainage from these again they're nonblanching Extremities: No digital cyanosis No clubbing Pedal pulses intact and symmetrical Radial pulses intact and symmetrical No calf tenderness Psychiatric: Alert and oriented to person, place and time labile emotion Neuro Muscles Strength 5/5 in all 4 extremities Sensation to light touch grossly present throughout Cranial nerves II-XII grossly intact No focal sensory deficits Lymphatics: no palpable cervical or supraclavicular , or inguinal lymph nodes Cranial Nerve Examination - Cranial Nerves Cranial Nerve II- Optic: Intact Cranial Nerve III- Oculomotor: Intact Cranial Nerve IV- Trochlear: Intact Cranial Nerve V- Trigeminal: Intact Cranial Nerve - Abducens: Intact Cranial Nerve VII- Facial: Intact Cranial Nerve VIII- Auditory: Intact Cranial Nerve IX- Glossopharyngeal: Intact Cranial Nerve X- Vagus: Intact Cranial Nerve XI- Accessory: Intact Cranial Nerve XII- Hypoglossal: Intact Results CBC & Chem 7: 02/28/21 15:25 02/28/21 15:25 Labs: Abnormal Lab Results - Last 24 Hours (Table) 02/28/21 02/28/21 Range/Units 15:25 15:25 Urine Protein Trace H (Negative) Urine Ketones 1+ H (Negative) Ur Amphetamines Screen Detected H (NotDetected) U Marijuana (THC) Screen Detected H (NotDetected) Assessment and Plan Assessment: Delusional thoughts Management per psych Patchy papular lesions over bilateral lower extremity with background of bruising unknown cause Check chest x-ray per patient request to evaluate for pleurisy Patient adamant on having that despite my recommendations Thank you for allowing us to participate in the care of this patient. We will follow peripherally. Do not hesitate to contact us with questions. Someone can be reached from the [facility] hospitalist group at all hours of the day at [phone].
--- NOTE | 2021-03-01 10:34 | XR ---
EXAMINATION TYPE: XR chest 1V DATE OF EXAM: 03/01/2021 COMPARISON: 02/12/2021 HISTORY: Chest pain, left mid axillary rib pain. TECHNIQUE: Single frontal view of the chest is obtai julia. FINDINGS: Heart size is within normal limits. No focal consolidation, pneumothorax or pleural effusi on. Findings are stable. IMPRESSION: 1. Stable chest. No acute pulmonary disease.
[2021-03-01] MEDS ORDERED: FLUoxetine HCL 10 MG CAP PO STA (11:59)
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
[2021-03-01] MEDS: MAGNESIUM HYDROXIDE 2,400 MG/10 ML CUP PO PRN (15:32)
[2021-03-01] MEDS: QUEtiapine 50 MG TAB PO SCH (21:13)
[2021-03-02] MEDS: FLUoxetine HCL 10 MG CAP PO SCH ×3 (08:52→21:08)
--- NOTE | 2021-03-02 10:55 | P.PN ---
Progress Note - Text Progress Note Date: 03/02/21 Interval History: Patient was seen resting in bed and was directable and agreeable to speak with the global technical writer in her room. Patient reports that she is feeling better today suicidal or homicidal ideation, intention, and/or plan. She is not reporting any auditory or visual hallucinations. She is denying any paranoia or other delusions. Patient does express that her somatic symptoms have significantly improved. Today, her primary concern is some constipation that she has been experiencing as well as decreased appetite. She is otherwise not reporting any elevated nausea, chest pain, or other problems. The patient does express that she is wary about taking prozac as she feels that the medication is too sedating. She is agreeable to take the medication well. Mental Status Exam: General Appearance: Patient appears to be stated age is alert, directable, and cooperative. Good hygiene and grooming. Behavior: Patient is calmly seated without any agitated behavior. Eye contact is appropriate. Normal psychomotor activity. Speech: Patient's speech is fluent and nonpressured. Mood/Affect: Mood is improving mildly, affect is euthymic to bright. Suicidality/Homicidality: Patient denies having any suicidal or homicidal ideation intent or plan. Perceptions: Patient denies any visual hallucinations and denies any auditory hallucinations Though content/process: There is no evidence of any delusional thought content and thought process is linear and goal-directed. Memory and concentration: AOX3, grossly intact for the purposes of this session Judgment and insight: Improving mildly Vital Signs Temp 96.8 F L 03/02/21 07:23 Pulse 50 L 03/02/21 07:23 Resp 16 03/02/21 07:23 BP 100/55 03/02/21 07:23 Pulse Ox 97 03/01/21 00:54 Assessment Bipolar Disorder, unspecified, mixed episode Acute Psychosis Posttraumatic Stress Disorder Cannabis Abuse Rule out cluster B Personality traits. Rule out autism spectrum disorder. Rule out ADHD. Plan: -Patient continues to meet criteria for inpatient psychiatric admission for symptom stabilization and safety. Patient has signed adult voluntary form and medication consent and was placed in patient's chart. -Medications: Continue prozac 30 mg at bedtime for PTSD/anxiety Continue Seroquel 50 mg at bedtime for mood stabilization/psychosis. -When necessary Ativan and Haldol for agitation/aggression. -SW on board for discharge planning. Encouraged the patient to participate in milieu.
[2021-03-02 15:16] VITALS: BMI 24.2
[2021-03-02] MEDS: QUEtiapine 50 MG TAB PO SCH (21:08)
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
[2021-03-03] MEDS: FLUoxetine HCL 10 MG CAP PO SCH (21:07)
[2021-03-03] MEDS: QUEtiapine 50 MG TAB PO SCH (21:08)
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
[2021-03-04] MEDS: FLUoxetine HCL 10 MG CAP PO SCH (20:11)
[2021-03-04] MEDS: QUEtiapine 50 MG TAB PO SCH (20:11)
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
[2021-03-05] MEDS: MAGNESIUM HYDROXIDE 2,400 MG/10 ML CUP PO PRN (20:24)
[2021-03-05] MEDS: QUEtiapine 50 MG TAB PO SCH (20:24)
[2021-03-05] MEDS: FLUoxetine HCL 10 MG CAP PO SCH (20:24)
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
[2021-03-06] MEDS: QUEtiapine 50 MG TAB PO SCH (21:55)
[2021-03-06] MEDS: FLUoxetine HCL 10 MG CAP PO SCH (21:55)
[2021-03-07 07:31] VITALS: BP 100/62; PULSE 57; RESP 18; TEMP 98
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
== END 2021-03-07 09:36 | disposition home or self-care (01) | DRG 885 ==
LOC: EC 13:31 → 3MHU 23:18
PROVIDERS: ADMIT Psychiatry & Neurology Psychiatry; ATTEND Psychiatry & Neurology Psychiatry
DX: F31.9 Bipolar disorder, unspecified (principal); T76.11XA Adult physical abuse, suspected, initial encounter; F20.9 Schizophrenia, unspecified; F12.10 Cannabis abuse, uncomplicated; F43.10 Post-traumatic stress disorder, unspecified; F81.9 Developmental disorder of scholastic skills, unspecified; F90.9 Attention-deficit hyperactivity disorder, unspecified type; K59.00 Constipation, unspecified; Z56.0 Unemployment, unspecified; Z91.5 Personal history of self-harm
CPT/HCPCS: 36415; 71045; 74018; 80053; 80306; 81003; 81025; 82075; 82150; 83605; 83690; 85025; 99285

== ENCOUNTER → 2021-11-10 | Outpatient (CLI) | payer BC ==
--- NOTE | 2021-11-10 15:48 | XR ---
EXAMINATION TYPE: XR sacroiliac joint comp BILAT DATE OF EXAM: 11/10/2021 CLINICAL HISTORY: Pain TECHNIQUE: 3 views of the sacroiliac joints are submitted. COMPARISON: None. FINDINGS: There is no acute fracture/dislocation evident in the pelvis. The sacroiliac joints are sy mmetric bilaterally without evidence for abnormal sclerosis or widening. IMPRESSION: No plain film radiographic evidence for sacroiliitis.
--- NOTE | 2021-11-11 11:24 | XR ---
EXAM TYPE: LUMBAR SPINE X RAY SERIES COMPARISON: NONE HISTORY: Pain TECHNIQUE: 4 views are submitted. FINDINGS: Alignment is anatomic. The pedicles are intact. The transverse processes are intact. There is no s pondylolysis or spondylolisthesis. IMPRESSION: 1. No acute process. If concern for disc herniation correlate with MRI
== END | disposition home or self-care (01) ==
LOC: RADXRMAIN 14:25
PROVIDERS: ATTEND Family Medicine
DX: M54.32 Sciatica, left side (principal)
CPT/HCPCS: 72100; 72202